=== PATIENT | male | born 1950 | race Caucasian/White ===

== ENCOUNTER 2024-11-11 16:06 | Inpatient (IN) ==
--- NOTE | 2024-11-11 16:47 | Emergency Department Note ---
Impression & Plan Symptomatic anemia, Elevated troponin I level, Weakness ED Provider Note NAME: CECY FITZGERALD AGE: 74 SEX: M : 1950 ARRIVES VIA: Walk-In INFORMANT: Patient, ED PROVIDER(S): Chirag Rosales DO CHIEF COMPLAINT: Weakness HPI: The patient is a 74-year-old male who presented to the emergency department for an evaluation of generalized weakness and chest pain. The patient has a history of cardiac disease. He had stenting 1 month ago. He also has a history of a progressively worsening hemoglobin. He has a history of lung cancer which was treated with wedge resection. He is currently not receiving chemotherapy or radiation. The patient had laboratory studies done last week by his mortar maker. He was called today and sent to the emergency department for blood transfusion. The patient has been very symptomatic with weakness. He had some shortness of breath with exertion. He denies having any leg swelling. He has had some black stool. He states currently this seems to be improving. ROS: See above HPI for pertinent positives & negatives. A total of 10 systems reviewed and were otherwise negative. PAST MEDICAL HISTORY: See Below PAST SURGICAL HISTORY: See Below FAMILY HISTORY: See Below SOCIAL HISTORY: See Below HOME MEDICATIONS: See Below ALLERGIES: See Below VITALS: See Below PHYSICAL EXAMINATION: GENERAL: Patient is awake alert in no acute distress patient is resting comfortably and showing no signs of anxiety EYES: The conjunctivae are clear. The pupils are round and reactive. EARS, NOSE, MOUTH AND THROAT: The nose is without any evidence of any deformity. NECK: The neck is nontender and supple. RESPIRATORY: Normal respiratory effort is noted there is no evidence of wheezing rhonchi or rales CARDIOVASCULAR: Regular rate and rhythm noted there no murmurs rubs or gallops normal S1 normal S2. GASTROINTESTINAL: The abdomen is soft. Abdomen is nontender. MUSCULOSKELETAL/EXTREMITIES: There is no evidence of gross deformity full range of motion is noted in the hips and shoulders. SKIN: There is no obvious evidence of any rash. Trace pedal edema was noted bilaterally. Skin was warm and dry. NEUROLOGIC: Patient is awake alert and oriented x3 MEDICAL DECISION MAKING: The patient is a 74-year-old male who presented to the emergency department for an evaluation of generalized weakness. The patient has a history of coronary artery disease. He has been having generalized weakness. He had laboratory studies done last week by his primary mortar maker. He was called today and told to come to the emergency department for further evaluation. The patient was found to be anemic. He has a history of GI bleeding. This was worked up as an outpatient as well as an inpatient in the past. No obvious source could be found despite upper as well as lower GI scoping. The patient states he has been having some dark stool but this is improving over the course the last several days. The patient was found to have anemia. Given his symptoms the patient was ordered transfusion in the emergency department. His case was discussed with the [facility] Hospitalist. Triage Nursing notes reviewed. Prior medical records reviewed Vital Signs: reviewed and remarkable for no significant abnormalities Differential diagnosis: Infection, dehydration, metabolic abnormality, hypo/hyperglycemia, electrolyte disturbance, anemia, hypoxia, cardiac sources, intracerebral event, toxicologic, neurologic, as well as other pathologies. ER treatment provided: See below Diagnostics interpreted by me: ECG: EKG was obtained in the emergency department. My interpretation is sinus bradycardia 52 bpm. No PVCs were noted. ST segment abnormalities were appreciated with a QTc of 602 ms. No previous tracings available. Cardiac Monitoring: An order was placed for continuous cardiac monitoring. The monitor shows a rate of 50 bpm with sinus bradycardia. Laboratory studies: As stated above and show below. Imaging studies: See below. Radiographic imaging was reviewed by myself Consultation(s): Dr. Lou was notified about the patient. She is on-call for the [facility] hospitalist group. Past Med/Surg History Problem List (Updated 11/11/24 @ 18:54 by Cinthia Lou MD) Chronic anticoagulation Afib COPD (chronic obstructive pulmonary disease) Iron deficiency anemia Acute diastolic heart failure Weakness (Acute) Elevated troponin I level (Acute) Symptomatic anemia (Acute) Medical History GI bleed CAD in [place] artery CHF (congestive heart failure) Hypertension Lung cancer Surgical History History of coronary artery stent placement Social History Smoking Status: Never smoker Feels Safe at Home: Yes Allergies Allergies Allergy/AdvReac Type Severity Reaction Status Date / Time Iodinated Contrast Media Allergy Intermediate Irritable Unverified 11/11/24 19:17 Home Meds Home Medications Medication Instructions Recorded Confirmed albuterol sulfate 2.5 mg/3 mL 2.5 mg inhalation Q6H PRN Wheezing 11/11/24 11/11/24 (0.083 %) solution for nebulization amiodarone 200 mg tablet 200 mg PO DAILY 11/11/24 11/11/24 atorvastatin 40 mg tablet 40 mg PO HS 11/11/24 11/11/24 budesonide 160 mcg-glycopyr 9 1 inh inhalation BID 11/11/24 11/11/24 mcg-formot 4.8 mcg/actuation HFA inhaler (Breztri GetMyBoatphere) bumetanide 1 mg tablet 1 mg PO BID 11/11/24 11/11/24 carvedilol 25 mg tablet 25 mg PO BID 11/11/24 11/11/24 clopidogrel 75 mg tablet 75 mg PO DAILY 11/11/24 11/11/24 diltiazem HCl 360 mg capsule,24 360 mg PO DAILY 11/11/24 11/11/24 hr,extended release empagliflozin 10 mg tablet 10 mg PO DAILY 11/11/24 11/11/24 (Jardiance) ferrous sulfate 325 mg (65 mg 325 mg PO DAILY 11/11/24 11/11/24 iron) tablet hydralazine 100 mg tablet 100 mg PO TID 11/11/24 11/11/24 loratadine 10 mg tablet 10 mg PO DAILY 11/11/24 11/11/24 multivitamin 1 tab PO DAILY 11/11/24 11/11/24 pantoprazole 40 mg tablet,delayed 40 mg PO DAILY 11/11/24 11/11/24 release rivaroxaban 20 mg tablet (Xarelto) 20 mg PO DAILY 11/11/24 11/11/24 tirzepatide 2.5 mg/0.5 mL 2.5 mg subcut WK 11/11/24 11/11/24 subcutaneous pen injector (Stephanie) Results & Data (ED) Vital Signs Vital Signs - 24 hr 11/11/24 16:10 11/11/24 16:32 11/11/24 16:59 Temperature 36.7 C Temperature Source Temporal Artery Scan Pulse Rate 56 L 54 L Pulse Rate [Apical] 52 L Respiratory Rate 18 18 Respiratory Effort / Characteristics Non-Labored Non-Labored Spontaneous Respiratory Depth Normal Respiratory Pattern Regular Blood Pressure 134/53 L Blood Pressure [Right Arm] 153/68 H Blood Pressure Mean 80 Blood Pressure Mean [Right Arm] 96 Pulse Oximetry 98 94 Oxygen Delivery Method Room Air Room Air Oxygen Flow Rate Sepsis Recent Fever Within 48 Hours No Sepsis New/Unexplained Change in Mental Status N/A Sepsis Action Taken by Nursing No Action Required 11/11/24 16:59 11/11/24 18:07 11/11/24 18:58 Temperature 37.1 C Temperature Source Oral Pulse Rate 50 L 58 L Pulse Rate [Apical] 55 L Respiratory Rate 18 16 19 Respiratory Effort / Characteristics Respiratory Depth Respiratory Pattern Blood Pressure 165/77 H Blood Pressure [Right Arm] 213/82 H Blood Pressure Mean 106 Blood Pressure Mean [Right Arm] 125 Pulse Oximetry 94 95 96 Oxygen Delivery Method Room Air Room Air Oxygen Flow Rate 0 Sepsis Recent Fever Within 48 Hours Sepsis New/Unexplained Change in Mental Status Sepsis Action Taken by Nursing 11/11/24 19:15 11/11/24 19:30 11/11/24 19:30 Temperature 37 C 36.9 C 36.9 C Temperature Source Oral Oral Oral Pulse Rate 59 L 59 L 59 L Pulse Rate [Apical] Respiratory Rate 19 20 20 Respiratory Effort / Characteristics Respiratory Depth Respiratory Pattern Blood Pressure 167/91 H 167/68 H 167/68 H Blood Pressure [Right Arm] Blood Pressure Mean 116 101 101 Blood Pressure Mean [Right Arm] Pulse Oximetry 95 95 95 Oxygen Delivery Method Oxygen Flow Rate 0 0 0 Sepsis Recent Fever Within 48 Hours Sepsis New/Unexplained Change in Mental Status Sepsis Action Taken by Half-Way Medications Current Medication List: was personally reviewed by me Laboratory Data Attestation: I reviewed the patient's lab results. 11/11/24 16:30 11/11/24 16:30 Lab Results 11/11/24 11/11/24 11/11/24 Range/Units 16:30 16:39 17:47 WBC 6.85 (4.8-10.8) K/ul RBC 2.44 L (4.70-6.10) M/uL Hgb 6.7 L* (14.0-18.0) g/dl Hct 23.1 L (42.0-52.0) % MCV 94.7 (80.0-100.0) fL MCH 27.5 (25.0-34.0) pg MCHC 29.0 L (32.0-36.0) g/dL RDW Std Deviation 54.1 H (36.4-46.3) fL RDW Coeff of Jesus 15.7 H (11.5-14.5) % Plt Count 290 (130-400) K/uL MPV 10.4 (9.4-12.4) fL Immature Gran % (Auto) 0.4 % Neut % (Auto) 76.6 % Lymph % (Auto) 11.7 % [place] % (Auto) 8.8 % Eos % (Auto) 1.9 % Baso % (Auto) 0.6 % Reticulocyte % (Auto) 7.09 H (0.50-2.00) % Neut # (Auto) 5.25 (1.40-6.50) K/uL Lymph # (Auto) 0.80 L (1.20-3.40) K/uL [place] # (Auto) 0.60 H (0.11-0.59) K/uL Eos # (Auto) 0.13 (0.00-0.50) K/uL Baso # (Auto) 0.04 (0.00-0.20) K/uL Reticulocyte # 0.180 H (0.020-0.100) 10^6/uL Immature Gran # (Auto) 0.03 (0.01-0.20) K/uL Polychromasia 1+ Hypochromasia Present Ovalocytes 1+ PT 19.8 H (9.0-12.0) Seconds INR 1.9 H (0.9-1.1) APTT 38 H (21-31) Seconds PTT Ratio 1.4 Sodium 140 (136-145) mmol/L Potassium 3.5 (3.5-5.1) mmol/L Chloride 101 (98-107) mmol/L Carbon Dioxide 28 (21-32) mmol/L Anion Gap 11 (3-11) BUN 18 (6-23) mg/dl Creatinine 1.40 (0.6-1.4) mg/dl Est Cr Clr Drug Dosing 63.8 ml/min eGFR 53.07 BUN/Creatinine Ratio 12.9 (10-20) Glucose 139 H (70-99(Fasting)) mg/dl Calcium 9.3 (8.6-10.3) mg/dl Iron 17 L (35-175) mcg/dl TIBC 494 H (250-450) mcg/dl Transferrin 353 (200-360) mg/dl Transferrin % Sat 3 L (20-50) % Total Bilirubin 0.6 (0.2-1.0) mg/dl AST 14 (13-39) U/L ALT 12 (7-52) U/L Alkaline Phosphatase 79 (34-104) U/L Troponin I High Sens 22.5 H (0-20) pg/ml B-Natriuretic Peptide 386 H (0-100) pg/ml Total Protein 6.3 (6.0-8.3) gm/dl Albumin 3.6 (3.4-5.0) gm/dl Globulin 2.7 (2.5-4.0) gm/dl Albumin/Globulin Ratio 1.3 (0.9-2) Lipase 16 (11-82) U/L Blood Type O Negative Blood Type Recheck O Negative Antibody Screen NEGATIVE Crossmatch See Detail 11/11/24 Range/Units 18:36 WBC (4.8-10.8) K/ul RBC (4.70-6.10) M/uL Hgb (14.0-18.0) g/dl Hct (42.0-52.0) % MCV (80.0-100.0) fL MCH (25.0-34.0) pg MCHC (32.0-36.0) g/dL RDW Std Deviation (36.4-46.3) fL RDW Coeff of Jesus (11.5-14.5) % Plt Count (130-400) K/uL MPV (9.4-12.4) fL Immature Gran % (Auto) % Neut % (Auto) % Lymph % (Auto) % [place] % (Auto) % Eos % (Auto) % Baso % (Auto) % Reticulocyte % (Auto) (0.50-2.00) % Neut # (Auto) (1.40-6.50) K/uL Lymph # (Auto) (1.20-3.40) K/uL [place] # (Auto) (0.11-0.59) K/uL Eos # (Auto) (0.00-0.50) K/uL Baso # (Auto) (0.00-0.20) K/uL Reticulocyte # (0.020-0.100) 10^6/uL Immature Gran # (Auto) (0.01-0.20) K/uL Polychromasia Hypochromasia Ovalocytes PT (9.0-12.0) Seconds INR (0.9-1.1) APTT (21-31) Seconds PTT Ratio Sodium (136-145) mmol/L Potassium (3.5-5.1) mmol/L Chloride (98-107) mmol/L Carbon Dioxide (21-32) mmol/L Anion Gap (3-11) BUN (6-23) mg/dl Creatinine (0.6-1.4) mg/dl Est Cr Clr Drug Dosing ml/min eGFR BUN/Creatinine Ratio (10-20) Glucose (70-99(Fasting)) mg/dl Calcium (8.6-10.3) mg/dl Iron (35-175) mcg/dl TIBC (250-450) mcg/dl Transferrin (200-360) mg/dl Transferrin % Sat (20-50) % Total Bilirubin (0.2-1.0) mg/dl AST (13-39) U/L ALT (7-52) U/L Alkaline Phosphatase (34-104) U/L Troponin I High Sens 22.0 H (0-20) pg/ml B-Natriuretic Peptide (0-100) pg/ml Total Protein (6.0-8.3) gm/dl Albumin (3.4-5.0) gm/dl Globulin (2.5-4.0) gm/dl Albumin/Globulin Ratio (0.9-2) Lipase (11-82) U/L Blood Type Blood Type Recheck Antibody Screen Crossmatch Administered Medications Discontinued Medications Furosemide (Furosemide 40 Mg/4 Ml Vial) 40 mg IV ONE ONE Stop: 11/11/24 17:38 Last Admin: 11/11/24 17:48 Dose: 40 mg Documented By: CAPRI Imaging Data Attestation: I personally reviewed and interpreted this imaging study as follows: My Impression: 1 view chest x-ray was obtained in the emergency department. My interpretation is possible infiltrate noted the right base, cardiomegaly was noted, final report below. Radiologist's Impression: Chest X-Ray 11/11/24 16:16 Clinical History: Chest pain and short of breath Technique: 2 frontal views of the chest were obtained Findings: There are no confluent pulmonary infiltrates. The heart is mildly enlarged. No pleural effusion or pneumothorax is seen. There is suspected mild pulmonary edema. No fracture is noted. No foreign body is seen Impression: Cardiomegaly and mild pulmonary edema ACT 112: Positive. There are findings on this exam that require communication between the performing entity and the patient following Patient Test Result Information Act ([place] ACT 112) guidelines. Electronically signed by Flaco Rubalcava 11-11-2024 4:54 PM Discharge Plan Visit Data Chief Complaint: Abnormal Labs/Diagnostic Testing Stated Complaint: BLOOD TRANSFUSION, LOW HEMOGLOBIN ED Provider: Chirag Rosales ED Midlevel Provider: Consuelo Escobedo Discharge Problem: Symptomatic anemia, Elevated troponin I level, Weakness Patient Disposition: Being Evaluated by Hospitalist Condition: Fair Forms Stand Alone Forms: My [facility] Prescriptions Prescriptions: No Action multivitamin Tablet 1 tab PO DAILY atorvastatin 40 mg Tablet 40 mg PO HS carvedilol 25 mg Tablet 25 mg PO BID Rx Instructions: must administer with a meal/food albuterol sulfate 2.5 mg /3 mL (0.083 %) Solution For Nebulization 2.5 mg inhalation Q6H PRN (Reason: Wheezing) amiodarone 200 mg Tablet 200 mg PO DAILY diltiazem HCl 360 mg Capsule,Extended Release 24hr 360 mg PO DAILY clopidogrel 75 mg Tablet 75 mg PO DAILY hydralazine 100 mg Tablet 100 mg PO TID pantoprazole 40 mg Tablet,Delayed Release (Dr/Ec) 40 mg PO DAILY ferrous sulfate 325 mg (65 mg iron) Tablet 325 mg PO DAILY bumetanide 1 mg Tablet 1 mg PO BID Rx Instructions: Take an additional 1 mg when there is a weight gain of 1-2 pounds the next day. loratadine 10 mg Tablet 10 mg PO DAILY Xarelto 20 mg Tablet 20 mg PO DAILY Rx Instructions: must administer with evening meal Jardiance 10 mg Tablet 10 mg PO DAILY Breztri Aerosphere 160-9-4.8 mcg/actuation Hfa Aerosol Inhaler 1 inh INHALATION BID Mounjaro 2.5 mg/0.5 mL Pen Injector 2.5 mg SUBCUT WK Referrals Referrals: Kyle Santizo, [Primary Care Provider] -
[2024-11-11 16:49] LABS: Hematocrit (blood only) 23.1 % (42.0-52.0); Hemoglobin 6.7 g/dl (14.0-18.0); Mean Corpuscular Hemoglobin 27.5 pg (25.0-34.0); Mean Corpuscular Volume 94.7 fL (80.0-100.0); Platelet Count 290 K/uL (130-400); RDW Standard Deviation 54.1 fL (36.4-46.3); Red Blood Count 2.44 M/uL (4.70-6.10); White Blood Count 6.85 K/ul (4.8-10.8)
--- NOTE | 2024-11-11 16:54 | XRay Report ---
Clinical History: Chest pain and short of breath Technique: 2 frontal views of the chest were obtained Findings: There are no confluent pulmonary infiltrates. The heart is mildly enlarged. No pleural effusion or pneumothorax is seen. There is suspected mild pulmonary edema. No fracture is noted. No foreign body is seen Impression: Cardiomegaly and mild pulmonary edema ACT 112: Positive. There are findings on this exam that require communication between the performing entity and the patient following Patient Test Result Information Act ([place] ACT 112) guidelines. Electronically signed by Flaco Rubalcava 11-11-2024 4:54 PM
[2024-11-11] MEDS ORDERED: SODIUM CHLORIDE 0.9% 100 ML IV PRN (16:59)
[2024-11-11 17:04] LABS: Alanine Aminotransferase 12.0 U/L (7-52); Albumin Globulin Ratio 1.3 (0.9-2); Alkaline Phosphatase 79.0 U/L (34-104); Anion Gap 11.0 (3-11); Bilirubin,Total 0.6 mg/dl (0.2-1.0); Blood Urea Nitrogen 18.0 mg/dl (6-23); Calcium 9.3 mg/dl (8.6-10.3); Carbon Dioxide 28.0 mmol/L (21-32); Chloride 101.0 mmol/L (98-107); Creatinine Clr Calc Pharmacy 63.8 ml/min; Globulin 2.7 gm/dl (2.5-4.0); Glucose 139.0 mg/dl (70-99(Fasting)); Lipase 16.0 U/L (11-82); Potassium 3.5 mmol/L (3.5-5.1); Sodium 140.0 mmol/L (136-145); Total Protein 6.3 gm/dl (6.0-8.3)
[2024-11-11 17:19] LABS: Iron 17.0 mcg/dl (35-175); Total Iron Binding Cap Calc 494.0 mcg/dl (250-450); Transferrin 353.0 mg/dl (200-360); Transferrin (FE) Percent Satur 3.0 % (20-50)
[2024-11-11 17:20] LABS: INR 1.9 (0.9-1.1); Partial Thromboplastin Time 38 Seconds (21-31); Prothrombin Time 19.8 Seconds (9.0-12.0)
[2024-11-11 17:29] LABS: Hypochromasia Present; Immature Granulocytes # (auto) 0.03 K/uL (0.01-0.20); Immature Granulocytes % (auto) 0.4 %; Ovalocytes 1+; Polychromasia 1+
[2024-11-11 17:38] LABS: Reticulocytes # 0.180 10^6/uL (0.020-0.100)
[2024-11-11] MEDS: FUROSEMIDE 40 MG/4 ML VIAL IV ONE (17:48)
--- NOTE | 2024-11-11 18:41 | History & Physical Report ---
Date of Service November 11, 2024 Assessment & Plan (1) Symptomatic anemia: (2) Elevated troponin I level: (3) Acute diastolic heart failure: (4) Iron deficiency anemia: (5) GI bleed: (6) CAD in [place] artery: (7) Hypertension: (8) Lung cancer: (9) COPD (chronic obstructive pulmonary disease): (10) Afib: (11) Chronic anticoagulation: Plan #Chronic blood loss / Symptomatic anemia #GIB #Iron deficiency anemia - pt will get 1 unit PRBC in the ED - will request GI eval - request records about previous EGD / C-scope - iron sat: 3%, iron 16, TIBC 494 - given pt has recent cardiac stent, will cont plavix - will place on clear liquid diet #AFib - cont amiodarone, diltiazem (confirm if pt is also on carvedilol) - pt has intermittent tachycardia and bradycardia - pt is on Xarelto, will tonight's dose until pt is evaluated by cardiology and GI #CHF - BNP pending - pt takes bumex 1mg po BID - s/p lasix 40mg IV x1 in the ED, cont 40mg IV daily - cont empagliflozin #HTN - pt on cont diltiazem (hold if HR < 55), hydralazine #Carotid artery stenosis - left carotid completely occluded - pt follows with Dr. Cárdenas #Constipation - iron induced - will order bowel regimen #HLD - cont atorvastatin #GERD - cont PPI #COPD - cont home nebulizers #ARON - trial CPAP while inpatient #Bradycardia - chronic, monitor at this time #DVT ppx: cont SCDs, holding xarelto for now #Code status: Full code, pt does state that if he does not return to baseline after his code and has severe neurological impairment, he does not want his life prolonged #Disposition: admit to PCU / Tele for closer monitoring History of Present Illness Chief Complaint: Low hemoglobin Primary Care Provider: Kyle Santizo, DO 74 yo M with PMHx of CAD s/p PCI x3 (2 LAD and 1 Circ - 09/2024), HTN, HLD, ARON not on CPAP, COPD, GIB (with reportedly neg EGD / C-scope), lung cancer s/p wedge bx (2023), AFib on Xarelto. Pt was sent to the hospital for low Hgb count. Per pt and his daughter, his hemoglobin has been trending down over the past 9 months. He had EGD and colonoscopy done in the last 12 months and he was told it is negative. He has not had capsule endoscopy or any other testing done. His stool however has been positive for blood. His stool is chronic black and also sticky. He does take iron. He has also had exertional dyspnea. He is not able to climb stairs, get out of car, or do ADLs for prolonged period of time without feeling dyspneic. He has also noted increase in weight by 2 pounds. His lower extremity edema has been worsening as well. He denied chest pain, palpitations, dizziness. He notes constipation x24 hours. Though he has known GI loss, he continues on plavix (for stents) and xarelto (for AFib). Also discussed CPAP and effects of pulmonary hypertension. Pt expresses severe discomfort with having it on. In the ED, given his Hgb is 6.7, he is given 1 unit PRBC. CXR shows pulmonary edema and he is given lasix 40mg IV. Past Med/Surg History Problem List (Updated 11/11/24 @ 18:54 by Cinthia Lou MD) Chronic anticoagulation Afib COPD (chronic obstructive pulmonary disease) Iron deficiency anemia Acute diastolic heart failure Weakness (Acute) Elevated troponin I level (Acute) Symptomatic anemia (Acute) Medical History GI bleed CAD in [place] artery CHF (congestive heart failure) Hypertension Lung cancer Surgical History History of coronary artery stent placement Social History Smoking Status: Never smoker Feels Safe at Home: Yes Review of Systems Review of Systems: Comprehensive ROS completed and is otherwise negative. Physical Exam Physical Exam: Gen: no acute distress, obese male, lying in bed comfortable HEENT: NC/AT, MMM Lungs: nonlabored breathing, CTAB (though some wheezing noted during conversation, suspect more upper airway) CVS: s1s2nl, RRR Abd: nl bowel sounds, soft, NT / ND : no martinez Ext: 2+ edema b/l, up to knees Neuro: AAOx3 Psych: calm, cooperative Results & Data Results & Data Vital Signs (Past 12 Hours) Vital Signs Temp Pulse Pulse Resp BP BP Pulse Ox 11/11/24 18:07 55 L 16 213/82 H 95 11/11/24 16:59 50 L 18 94 11/11/24 16:59 52 L 18 153/68 H 94 11/11/24 16:32 54 L 11/11/24 16:10 36.7 C 56 L 18 134/53 L 98 O2 Del Method 11/11/24 18:07 Room Air 11/11/24 16:59 Room Air 11/11/24 16:59 Room Air 11/11/24 16:32 11/11/24 16:10 Room Air PG Care Time/CCT Total # of Minutes Spent Total Time Spent with Patient: Total time spent is greater than 50% in coordination of care (as documented) at patient's floor/unit and/or counseling patient: Coding Level of Care Code 22091 INT INP/OBS CARE 3/75MIN Diagnoses Symptomatic anemia D64.9 Elevated troponin I level R79.89 Acute diastolic heart failure I50.31 Iron deficiency anemia D50.9 GI bleed K92.2 CAD in [place] artery I25.10 Hypertension I10 Lung cancer C34.90 COPD (chronic obstructive pulmonary disease) J44.9 Afib I48.91 Chronic anticoagulation Z79.01
[2024-11-11] MEDS ORDERED: NITROGLYCERIN SL 0.4 MG/TAB TAB SL PRN (21:02)
[2024-11-11] MEDS ORDERED: ONDANSETRON INJ 2 MG/ML 2 ML VIAL IV PRN (21:02)
[2024-11-11] MEDS ORDERED: NON-FORMULARY MEDICATION (Budesonide-Glycopyr-Formoterol [Breztri Aerosphere] 160-9-4.8 mc INH SCH (21:02)
[2024-11-11] MEDS: BUMETANIDE 1 MG TAB PO SCH (22:27)
[2024-11-11] MEDS: ACETAMINOPHEN 325 MG TAB PO PRN (22:30)
[2024-11-11] MEDS: ATORVASTATIN 40 MG TAB PO SCH (22:31)
[2024-11-12] MEDS: MELATONIN 3 MG TAB PO PRN (01:51)
[2024-11-12] MEDS: POLYETHYLENE (MIRALAX) 17 GM PACK PO PRN (07:42)
[2024-11-12] MEDS: BUMETANIDE 1 MG TAB PO SCH (07:42)
[2024-11-12] MEDS: AMIODARONE 200 MG TAB PO SCH (07:43)
[2024-11-12] MEDS: LORATADINE 10 MG TAB PO SCH (07:43)
[2024-11-12] MEDS: FERROUS SULFATE 325 MG TAB PO SCH (07:44)
[2024-11-12] MEDS: EMPAGLIFLOZIN 10 MG TAB PO SCH (07:44)
[2024-11-12] MEDS: FLUTICASONE FUROATE 100MCG 14 PUFFS/INHALER INH SCH (07:44)
[2024-11-12] MEDS: CLOPIDOGREL BISULFATE 75 MG TAB PO SCH (07:44)
[2024-11-12] MEDS: UMECLIDINIUM/VILANTEROL 62.5/25MCG 7 PUFFS/INHALER INH SCH (07:45)
--- NOTE | 2024-11-12 08:44 | Cardiology Consultation ---
Date of Consultation November 12, 2024 Assessment & Plan (1) CAD (coronary artery disease): Status post cath x 3 stents in September 2024 with PCI to LAD 80% proximal to mid as well as a 70% mid circumflex (2) Paroxysmal atrial fibrillation: (3) Acute diastolic heart failure: (4) Symptomatic anemia: (5) Elevated troponin I level: (6) Rectal bleeding: (7) Carotid artery disease: (8) Pulmonary hypertension: His wedge pressure and LVEDP at the time of his catheterization was quite elevated 30-35. His pulmonary artery pressures were 65/28 which is severe Plan Fortunately with this recurrent GI bleeding both his antiplatelet clopidogrel as well as his Xarelto will need held. He was received a second unit of blood. I would recommend that GI proceed with his evaluation while he is here in the hospital and we can safely hold his blood thinners. He should be maintained on amiodarone at this time to hopefully keep him in normal sinus rhythm because of the recurrent GI bleeding in less than a year he definitely qualifies for evaluation for a Watchman procedure. The status of the lung cancer is not completely clear at this point however and needs to be factored into decision for all of the above. Cardiology will follow the patient in the hospital and then we will schedule him for follow-up afterwards. Thank you for allow me to participate in his care. History of Present Illness Reason for Consultation: Cardiac evaluation Attending Physician: Cinthia Lou MD History of Present Illness Mr. Abdulaziz Rascon is a 74-year-old man who is recently becoming established with [facility] cardiology. He saw my partner on [phone] and was referred from vascular surgery due to significant carotid disease. He has had history of coronary artery disease and catheterization in the past with LAD stenting as well as circumflex stenting. He has had congestive heart failure as well in the past. He presented to the emergency room yesterday after our office called with severe anemia and a hemoglobin down to 6. He reports that he has been having GI bleeding for several months. In fact he underwent a GI evaluation in [place] where he moved from in August of this year and also about 9 months ago. In August he underwent an EGD and was started on famotidine but has been on pantoprazole for quite some time. He reports that when he had the colonoscopy about 9 months ago he was noted to have diverticuli. He has a history of obstructive sleep apnea but is intolerant of CPAP. In addition he has the recent GI bleeding and melena which we have not been able to explain despite prior workup. He has a history of severe tobacco abuse and was smoking up to 4 packs/day and stopped in 2023 at the time of the diagnosis of lung resection cancer status post resection of the right upper and middle lobes. He also has a history of prostate cancer in the past. He has a history of A- fib flutter and is on amiodarone as well as anticoagulation. He sees vascular surgery Dr. Cárdenas and has a left carotid occlusion with a 50 to 60% of the right carotid stenosis. When he came into the hospital yesterday he underwent a single unit transfusion last night. His hemoglobin was still in the low sevens and he was getting a second unit at this time. He has been seen by GI and the plan is to do endoscopy on him again. Allergies Allergy/AdvReac Type Severity Reaction Status Date / Time Iodinated Contrast Media Allergy Intermediate Irritable Unverified 11/11/24 19:17 Home Medications Medication Instructions Recorded Confirmed Type albuterol sulfate 2.5 mg/3 mL 2.5 mg inhalation Q6H PRN Wheezing 11/11/24 11/11/24 History (0.083 %) solution for nebulization amiodarone 200 mg tablet 200 mg PO DAILY 11/11/24 11/11/24 History atorvastatin 40 mg tablet 40 mg PO HS 11/11/24 11/11/24 History budesonide 160 mcg-glycopyr 9 1 inh inhalation BID 11/11/24 11/11/24 History mcg-formot 4.8 mcg/actuation HFA inhaler (Breztri Aerosphere) bumetanide 1 mg tablet 1 mg PO BID 11/11/24 11/11/24 History carvedilol 25 mg tablet 25 mg PO BID 11/11/24 11/11/24 History clopidogrel 75 mg tablet 75 mg PO DAILY 11/11/24 11/11/24 History diltiazem HCl 360 mg capsule,24 360 mg PO DAILY 11/11/24 11/11/24 History hr,extended release empagliflozin 10 mg tablet 10 mg PO DAILY 11/11/24 11/11/24 History (Jardiance) ferrous sulfate 325 mg (65 mg 325 mg PO DAILY 11/11/24 11/11/24 History iron) tablet hydralazine 100 mg tablet 100 mg PO TID 11/11/24 11/11/24 History loratadine 10 mg tablet 10 mg PO DAILY 11/11/24 11/11/24 History multivitamin 1 tab PO DAILY 11/11/24 11/11/24 History pantoprazole 40 mg tablet,delayed 40 mg PO DAILY 11/11/24 11/11/24 History release rivaroxaban 20 mg tablet (Xarelto) 20 mg PO DAILY 11/11/24 11/11/24 History tirzepatide 2.5 mg/0.5 mL 2.5 mg subcut WK 11/11/24 11/11/24 History subcutaneous pen injector (Mounjaro) Patient History Medical History GI bleed CAD in [place] artery CHF (congestive heart failure) Hypertension Lung cancer Surgical History History of coronary artery stent placement Social History Smoking Status: Former smoker Tobacco Type: Cigarettes Hx Alcohol Use: Yes Alcohol type: beer Hx Substance Use: No Preferred Language: Bulgarian Communication Ability: Effective 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 Beliefs That Will Affect Care: None Current Living Situation: Family Feels Safe at Home: Yes Safety Concerns: Feels Safe At This Time Assistive Devices: Cane Review of Systems Review of Systems: All systems reviewed & are unremarkable except as noted in HPI & below Physical Exam Physical Exam: AAO x3 Respiratory: normal respiratory effort, lungs clear to auscultation Cardiovascular: RRR, no murmur, no edema Results & Data Vital Signs (Past 12 Hours) Vital Signs Temp Pulse Pulse Resp BP BP Pulse Ox 11/12/24 08:36 36.8 C 51 L 18 154/63 H 96 11/12/24 08:17 11/12/24 02:27 36.7 C 49 L 16 147/55 H 96 11/11/24 23:00 59 L 11/11/24 22:40 36.9 C 60 20 167/60 H 96 11/11/24 21:08 11/11/24 21:08 36.7 C 62 22 185/67 H 95 11/11/24 21:00 36.7 C 62 185/67 H O2 Del Method 11/12/24 08:36 Room Air 11/12/24 08:17 Room Air 11/12/24 02:27 Room Air 11/11/24 23:00 11/11/24 22:40 Room Air 11/11/24 21:08 Room Air 11/11/24 21:08 Room Air 11/11/24 21:00 Laboratory Results Abnormal lab results 11/11/24 11/11/24 11/11/24 Range/Units 16:30 16:39 17:47 RBC 2.44 L (4.70-6.10) M/uL Hgb 6.7 L* (14.0-18.0) g/dl Hct 23.1 L (42.0-52.0) % MCHC 29.0 L (32.0-36.0) g/dL RDW Std Deviation 54.1 H (36.4-46.3) fL RDW Coeff of Jesus 15.7 H (11.5-14.5) % Reticulocyte % (Auto) 7.09 H (0.50-2.00) % Lymph # (Auto) 0.80 L (1.20-3.40) K/uL Bent # (Auto) 0.60 H (0.11-0.59) K/uL Reticulocyte # 0.180 H (0.020-0.100) 10^6/uL PT 19.8 H (9.0-12.0) Seconds INR 1.9 H (0.9-1.1) APTT 38 H (21-31) Seconds Glucose 139 H (70-99(Fasting)) mg/dl Iron 17 L (35-175) mcg/dl TIBC 494 H (250-450) mcg/dl Transferrin % Sat 3 L (20-50) % Troponin I High Sens 22.5 H (0-20) pg/ml B-Natriuretic Peptide 386 H (0-100) pg/ml Crossmatch See Detail 11/11/24 Range/Units 18:36 RBC (4.70-6.10) M/uL Hgb (14.0-18.0) g/dl Hct (42.0-52.0) % MCHC (32.0-36.0) g/dL RDW Std Deviation (36.4-46.3) fL RDW Coeff of Jesus (11.5-14.5) % Reticulocyte % (Auto) (0.50-2.00) % Lymph # (Auto) (1.20-3.40) K/uL Bent # (Auto) (0.11-0.59) K/uL Reticulocyte # (0.020-0.100) 10^6/uL PT (9.0-12.0) Seconds INR (0.9-1.1) APTT (21-31) Seconds Glucose (70-99(Fasting)) mg/dl Iron (35-175) mcg/dl TIBC (250-450) mcg/dl Transferrin % Sat (20-50) % Troponin I High Sens 22.0 H (0-20) pg/ml B-Natriuretic Peptide (0-100) pg/ml Crossmatch Medications Administered Current Inpatient Medications Acetaminophen (Acetaminophen 325 Mg Tab) 650 mg PO Q4H PRN PRN Reason: Pain or Fever Stop: 12/11/24 22:19 Last Admin: 11/12/24 07:42 Dose: 650 mg Albuterol (Albuterol 0.083% Nebu Soln 3 Ml Vial) 2.5 mg INH Q6H PRN; Protocol PRN Reason: Wheezing Stop: 12/11/24 21:01 Amiodarone HCl (Amiodarone 200 Mg Tab) 200 mg PO DAILY PEG Stop: 12/12/24 08:59 Last Admin: 11/12/24 07:43 Dose: 200 mg Atorvastatin Calcium (Atorvastatin 40 Mg Tab) 40 mg PO HS PEG Stop: 12/11/24 21:01 Last Admin: 11/11/24 22:31 Dose: 40 mg Bumetanide (Bumetanide 1 Mg Tab) 1 mg PO BID PEG Stop: 12/12/24 08:59 Last Admin: 11/12/24 07:42 Dose: 1 mg Carvedilol (Carvedilol 25 Mg Tab) 25 mg PO BID PEG Stop: 12/11/24 21:01 Last Admin: 11/12/24 07:43 Dose: 25 mg Clopidogrel Bisulfate (Clopidogrel Bisulfate 75 Mg Tab) 75 mg PO DAILY PEG Stop: 12/12/24 08:59 Last Admin: 11/12/24 07:44 Dose: 75 mg Diltiazem HCl (Diltiazem Hcl 180 Mg Capcr) 360 mg PO DAILY [facility] Stop: 12/12/24 08:59 Last Admin: 11/12/24 07:43 Dose: 360 mg Empagliflozin (Empagliflozin 10 Mg Tab) 10 mg PO DAILY PEG Stop: 12/12/24 08:59 Last Admin: 11/12/24 07:44 Dose: 10 mg Ferrous Sulfate (Ferrous Sulfate 325 Mg Tab) 325 mg PO DAILY PEG Stop: 12/12/24 08:59 Last Admin: 11/12/24 07:44 Dose: 325 mg Fluticasone Furoate (Fluticasone Furoate 100mcg 14 Puffs/Inhaler) 1 puffs INH DAILY [facility] Stop: 12/12/24 08:59 Last Admin: 11/12/24 07:44 Dose: 1 puffs Hydralazine HCl (Hydralazine Tab 50 Mg Tab) 100 mg PO TID [facility] Stop: 12/11/24 21:01 Last Admin: 11/12/24 07:43 Dose: 100 mg Loratadine (Loratadine 10 Mg Tab) 10 mg PO DAILY [facility] Stop: 12/12/24 08:59 Last Admin: 11/12/24 07:43 Dose: 10 mg Melatonin (Melatonin 3 Mg Tab) 3 mg PO HS PRN PRN Reason: Sleep Stop: 12/12/24 01:25 Last Admin: 11/12/24 01:51 Dose: 3 mg Nitroglycerin (Nitroglycerin Sl 0.4 Mg/Tab Tab) 0.4 mg SL Q5M PRN PRN Reason: Chest Pain Stop: 12/11/24 21:01 Ondansetron HCl (Ondansetron Inj 2 Mg/Ml 2 Ml Vial) 4 mg IV Q6H PRN PRN Reason: Nausea Stop: 12/11/24 21:01 Pantoprazole Sodium (Pantoprazole 40 Mg Tab) 40 mg PO DAILY [facility] Stop: 12/12/24 08:59 Last Admin: 11/12/24 07:43 Dose: 40 mg Polyethylene Glycol (Polyethylene (Miralax) 17 Gm Pack) 17 gm PO DAILY PRN PRN Reason: Constipation Stop: 12/11/24 21:01 Last Admin: 11/12/24 07:42 Dose: 17 gm Umeclidinium/Vilanterol (Umeclidinium/Vilanterol 62.5/25mcg 7 Puffs/Inhaler) 1 puffs INH DAILY PEG Stop: 12/12/24 08:59 Last Admin: 11/12/24 07:45 Dose: 1 puffs ECG Additional Comments: NSR/ bradycardia right bundle branch block
[2024-11-12 08:57] LABS: Hematocrit (blood only) 25.9 % (42.0-52.0); Hemoglobin 7.6 g/dl (14.0-18.0); Mean Corpuscular Hemoglobin 26.8 pg (25.0-34.0); Mean Corpuscular Volume 91.2 fL (80.0-100.0); Platelet Count 294 K/uL (130-400); RDW Standard Deviation 56.7 fL (36.4-46.3); Red Blood Count 2.84 M/uL (4.70-6.10); White Blood Count 5.98 K/ul (4.8-10.8)
[2024-11-12 09:22] LABS: Anion Gap 8.0 (3-11); Blood Urea Nitrogen 16.0 mg/dl (6-23); Calcium 9.1 mg/dl (8.6-10.3); Carbon Dioxide 29.0 mmol/L (21-32); Chloride 100.0 mmol/L (98-107); Creatinine Clr Calc Pharmacy 61.6 ml/min; Glucose 192.0 mg/dl (70-99(Fasting)); Magnesium 2.2 mg/dl (1.7-2.4); Potassium 3.1 mmol/L (3.5-5.1); Sodium 137.0 mmol/L (136-145)
--- NOTE | 2024-11-12 09:28 | Gastrointestinal Consultation ---
Date of Consultation November 12, 2024 Assessment & Plan (1) Chronic anticoagulation: 74 year old male with history of of CAD s/p PCI x3 (09/2024) on Plavix, HTN, HLD, ARON, COPD, anemia (EGD/Colonoscopy in [place] in 2023 negative per patient, lung cancer, AFib on Xarelto and others below admitted through the ED w/ anemia, dark and tarry stools which outdate initiation of iron supplementation Clear liquid diet today today. Appreciate cardiology consultation. Will discuss candidacy for EGD/Colonoscopy w/ attending given his anticoagulation status, recent cardiac stenting and ongoing Plavix. Continue supportive measure for now as he is hemodynamically stable. Trend H&H. Monitor and document GI output. Transfuse PRN per primary team. IV PPI twice daily for 48 hours then convert to PO PPI 40 mg twice daily. Review records from EGD/Colonoscopy from [place] once they are obtained. I spent a total of 60 minutes on the date of service in review of patient's record, and previously obtained information in person and appropriate medical visit, discussion and education of plan, with patient and/or caregiver, placing orders for tests/referral/procedures as medically necessary and documentation of pertinent clinical information in patient's medical records for their visit today. (2) Iron deficiency anemia: Supervising Physician Co-Signing Physician Notes I saw and examined this patient with our nurse practitioner and agree with her assessment and plan. Patient presents with persistent anemia more severe this presentation with possible GI blood loss. Prior endoscopy and colonoscopy were unrevealing. The studies were done over a year ago. In light of the fact that he is having possible melena we will repeat these endoscopic procedures once able to hold Xarelto. Awaiting cardiology input. If repeat endoscopy and colonoscopy unrevealing he would be a candidate for capsule endoscopy to exclude a small bowel source. History of Present Illness Reason for Consultation: anemia Requesting Physician: Cinthia Lou MD Attending Physician: Cinthia Lou MD History of Present Illness 74 year old male with history of of CAD s/p PCI x3 (09/2024) on Plavix, HTN, HLD, ARON, COPD, anemia (EGD/Colonoscopy in [place] in 2023 negative per patient, lung cancer, AFib on Xarelto and others below admitted through the ED w/ anemia. GI was asked to evaluate.Suggests about a year ago he underwent EGD/Colonoscopy for evaluation of anemia. No source of bleeding was identified. He was advised to start OTC PPI therapy for reflux and to have a repeat colonoscopy in three years given a personal history of colon polyps. Suggests since this evaluation he has been readmitted x 3 at [facility] for evaluation of anemia. He notes he has had dark, tarry stools for a few months now. He notes that these started BEFORE he began taking oral iron supplementation one month ago. He denies abd pain. No nausea/vomiting. He does report intermittent solid's dysphagia. He notes intermittent constipation. No BRBPR. No report of weight loss. No fever, chills, CP, SOB. On arrival to the ED he was anemia w/ hgb 6.7 s/p 1 unit RBCs w/ HGB 7.6 this AM. CXR shows pulmonary edema and he was started on IV lasix. Cardiology consultation is pending. He has continued on Plavix and Xarleto. Brothers w/ large colon polyps. Personal history of colon polyps. No family history of GI malignancy. He is in the process of moving to [facility] w/ his daughter. Allergies Allergy/AdvReac Type Severity Reaction Status Date / Time Iodinated Contrast Media Allergy Intermediate Irritable Unverified 11/11/24 19:17 Home Medications Medication Instructions Recorded Confirmed Type albuterol sulfate 2.5 mg/3 mL 2.5 mg inhalation Q6H PRN Wheezing 11/11/24 11/11/24 History (0.083 %) solution for nebulization amiodarone 200 mg tablet 200 mg PO DAILY 11/11/24 11/11/24 History atorvastatin 40 mg tablet 40 mg PO HS 11/11/24 11/11/24 History budesonide 160 mcg-glycopyr 9 1 inh inhalation BID 11/11/24 11/11/24 History mcg-formot 4.8 mcg/actuation HFA inhaler (Breztri Aerosphere) bumetanide 1 mg tablet 1 mg PO BID 11/11/24 11/11/24 History carvedilol 25 mg tablet 25 mg PO BID 11/11/24 11/11/24 History clopidogrel 75 mg tablet 75 mg PO DAILY 11/11/24 11/11/24 History diltiazem HCl 360 mg capsule,24 360 mg PO DAILY 11/11/24 11/11/24 History hr,extended release empagliflozin 10 mg tablet 10 mg PO DAILY 11/11/24 11/11/24 History (Jardiance) ferrous sulfate 325 mg (65 mg 325 mg PO DAILY 11/11/24 11/11/24 History iron) tablet hydralazine 100 mg tablet 100 mg PO TID 11/11/24 11/11/24 History loratadine 10 mg tablet 10 mg PO DAILY 11/11/24 11/11/24 History multivitamin 1 tab PO DAILY 11/11/24 11/11/24 History pantoprazole 40 mg tablet,delayed 40 mg PO DAILY 11/11/24 11/11/24 History release rivaroxaban 20 mg tablet (Xarelto) 20 mg PO DAILY 11/11/24 11/11/24 History tirzepatide 2.5 mg/0.5 mL 2.5 mg subcut WK 11/11/24 11/11/24 History subcutaneous pen injector (Mounjaro) Patient History Medical History GI bleed CAD in [place] artery CHF (congestive heart failure) Hypertension Lung cancer Surgical History History of coronary artery stent placement Social History Smoking Status: Former smoker Tobacco Type: Cigarettes Hx Alcohol Use: Yes Alcohol type: beer Hx Substance Use: No Preferred Language: Upper Sorbian Communication Ability: Effective Facility Manager Required: No Beliefs That Will Affect Care: None Current Living Situation: Family Feels Safe at Home: Yes Safety Concerns: Feels Safe At This Time Assistive Devices: Cane Review of Systems Review of Systems: All other findings negative except as noted in HPI. Physical Exam Constitutional: WD/WN, vitals as above Respiratory: normal respiratory effort Cardiovascular: Rate/Rhythm: regular rate Gastrointestinal (Abdomen): normal bowel sounds, soft, nontender, no hepatosplenomegaly Skin: no rashes, warm and dry + bilat lower extrem edema Results & Data Vital Signs (Past 12 Hours) Vital Signs Temp Pulse Pulse Resp BP Pulse Ox O2 Del Method 11/12/24 08:36 98.2 F 51 L 18 154/63 H 96 Room Air 11/12/24 08:17 Room Air 11/12/24 02:27 98.1 F 49 L 16 147/55 H 96 Room Air 11/11/24 23:00 59 L 11/11/24 22:40 98.4 F 60 20 167/60 H 96 Room Air Laboratory Results 11/12/24 11/11/24 11/11/24 Range/Units 08:26 18:36 17:47 WBC 5.98 (4.8-10.8) K/ul RBC 2.84 L (4.70-6.10) M/uL Hgb 7.6 L (14.0-18.0) g/dl Hct 25.9 L (42.0-52.0) % MCV 91.2 (80.0-100.0) fL MCH 26.8 (25.0-34.0) pg MCHC 29.3 L (32.0-36.0) g/dL RDW Std Deviation 56.7 H (36.4-46.3) fL RDW Coeff of Jesus 17.1 H (11.5-14.5) % Plt Count 294 (130-400) K/uL MPV 10.9 (9.4-12.4) fL Immature Gran % (Auto) % Neut % (Auto) % Lymph % (Auto) % [place] % (Auto) % Eos % (Auto) % Baso % (Auto) % Reticulocyte % (Auto) (0.50-2.00) % Neut # (Auto) (1.40-6.50) K/uL Lymph # (Auto) (1.20-3.40) K/uL [place] # (Auto) (0.11-0.59) K/uL Eos # (Auto) (0.00-0.50) K/uL Baso # (Auto) (0.00-0.20) K/uL Reticulocyte # (0.020-0.100) 10^6/uL Immature Gran # (Auto) (0.01-0.20) K/uL Polychromasia Hypochromasia Ovalocytes PT (9.0-12.0) Seconds INR (0.9-1.1) APTT (21-31) Seconds PTT Ratio Sodium 137 (136-145) mmol/L Potassium 3.1 L (3.5-5.1) mmol/L Chloride 100 (98-107) mmol/L Carbon Dioxide 29 (21-32) mmol/L Anion Gap 8 (3-11) BUN 16 (6-23) mg/dl Creatinine 1.45 H (0.6-1.4) mg/dl Est Cr Clr Drug Dosing 61.6 ml/min eGFR 50.88 BUN/Creatinine Ratio 11.0 (10-20) Glucose 192 H (70-99(Fasting)) mg/dl Calcium 9.1 (8.6-10.3) mg/dl Phosphorus 3.6 (2.5-4.9) mg/dl Magnesium 2.2 (1.7-2.4) mg/dl Iron (35-175) mcg/dl TIBC (250-450) mcg/dl Transferrin (200-360) mg/dl Transferrin % Sat (20-50) % Total Bilirubin (0.2-1.0) mg/dl AST (13-39) U/L ALT (7-52) U/L Alkaline Phosphatase (34-104) U/L Troponin I High Sens 22.0 H (0-20) pg/ml B-Natriuretic Peptide 386 H (0-100) pg/ml Total Protein (6.0-8.3) gm/dl Albumin (3.4-5.0) gm/dl Globulin (2.5-4.0) gm/dl Albumin/Globulin Ratio (0.9-2) Lipase (11-82) U/L Blood Type Blood Type Recheck O Negative Antibody Screen Crossmatch 11/11/24 11/11/24 Range/Units 16:39 16:30 WBC 6.85 (4.8-10.8) K/ul RBC 2.44 L (4.70-6.10) M/uL Hgb 6.7 L* (14.0-18.0) g/dl Hct 23.1 L (42.0-52.0) % MCV 94.7 (80.0-100.0) fL MCH 27.5 (25.0-34.0) pg MCHC 29.0 L (32.0-36.0) g/dL RDW Std Deviation 54.1 H (36.4-46.3) fL RDW Coeff of Jesus 15.7 H (11.5-14.5) % Plt Count 290 (130-400) K/uL MPV 10.4 (9.4-12.4) fL Immature Gran % (Auto) 0.4 % Neut % (Auto) 76.6 % Lymph % (Auto) 11.7 % [place] % (Auto) 8.8 % Eos % (Auto) 1.9 % Baso % (Auto) 0.6 % Reticulocyte % (Auto) 7.09 H (0.50-2.00) % Neut # (Auto) 5.25 (1.40-6.50) K/uL Lymph # (Auto) 0.80 L (1.20-3.40) K/uL [place] # (Auto) 0.60 H (0.11-0.59) K/uL Eos # (Auto) 0.13 (0.00-0.50) K/uL Baso # (Auto) 0.04 (0.00-0.20) K/uL Reticulocyte # 0.180 H (0.020-0.100) 10^6/uL Immature Gran # (Auto) 0.03 (0.01-0.20) K/uL Polychromasia 1+ Hypochromasia Present Ovalocytes 1+ PT 19.8 H (9.0-12.0) Seconds INR 1.9 H (0.9-1.1) APTT 38 H (21-31) Seconds PTT Ratio 1.4 Sodium 140 (136-145) mmol/L Potassium 3.5 (3.5-5.1) mmol/L Chloride 101 (98-107) mmol/L Carbon Dioxide 28 (21-32) mmol/L Anion Gap 11 (3-11) BUN 18 (6-23) mg/dl Creatinine 1.40 (0.6-1.4) mg/dl Est Cr Clr Drug Dosing 63.8 ml/min eGFR 53.07 BUN/Creatinine Ratio 12.9 (10-20) Glucose 139 H (70-99(Fasting)) mg/dl Calcium 9.3 (8.6-10.3) mg/dl Phosphorus (2.5-4.9) mg/dl Magnesium (1.7-2.4) mg/dl Iron 17 L (35-175) mcg/dl TIBC 494 H (250-450) mcg/dl Transferrin 353 (200-360) mg/dl Transferrin % Sat 3 L (20-50) % Total Bilirubin 0.6 (0.2-1.0) mg/dl AST 14 (13-39) U/L ALT 12 (7-52) U/L Alkaline Phosphatase 79 (34-104) U/L Troponin I High Sens 22.5 H (0-20) pg/ml B-Natriuretic Peptide (0-100) pg/ml Total Protein 6.3 (6.0-8.3) gm/dl Albumin 3.6 (3.4-5.0) gm/dl Globulin 2.7 (2.5-4.0) gm/dl Albumin/Globulin Ratio 1.3 (0.9-2) Lipase 16 (11-82) U/L Blood Type O Negative Blood Type Recheck Antibody Screen NEGATIVE Crossmatch See Detail PG Care Time/CCT Total # of Minutes Spent Total Time Spent with Patient: Total time spent is greater than 50% in coordination of care (as documented) at patient's floor/unit and/or counseling patient: Coding Level of Care Code 78397 INT INP/OBS CARE 3/75MIN Diagnoses Chronic anticoagulation Z79.01 Iron deficiency anemia D50.9
[2024-11-12] MEDS ORDERED: SODIUM CHLORIDE 0.9% 100 ML IV PRN (09:58)
[2024-11-12] MEDS: POTASSIUM CHLORIDE CRTAB 20 MEQ TABCR PO SCH (12:13)
--- NOTE | 2024-11-12 12:45 | Electrocardiogram Report ---
Test Reason : Blood Pressure : */* mmHG Vent. Rate : 52 BPM Atrial Rate : 52 BPM P-R Int : 130 ms QRS Dur : 136 ms QT Int : 648 ms P-R-T Axes : * 40 23 degrees QTcB Int : 602 ms Sinus bradycardia Right bundle branch block Prolonged QT Abnormal ECG No previous ECGs available Confirmed by Jamar Storm ([id number] on 11/12/2024 12:45:48 PM Referred By: Kyle Santizo Confirmed By: Jamar Storm
--- NOTE | 2024-11-12 14:49 | Hospitalist Progress Note ---
Date of Service November 12, 2024 Assessment & Plan (1) Symptomatic anemia: (2) Elevated troponin I level: (3) Acute diastolic heart failure: (4) Iron deficiency anemia: (5) GI bleed: (6) CAD in [place] artery: (7) Hypertension: (8) Lung cancer: (9) COPD (chronic obstructive pulmonary disease): (10) Afib: (11) Chronic anticoagulation: Plan #Chronic blood loss / Symptomatic anemia #GIB #Iron deficiency anemia - pt will get 1 unit PRBC in the ED, additional unit given today - GI recs appreciated, plan for EGD on 11/13 - request records about previous EGD / C-scope - iron sat: 3%, iron 16, TIBC 494 - given pt has recent cardiac stents, pt on plavix, cardiology cleared for this to be held at this time - will place on clear liquid diet #AFib - cont amiodarone, diltiazem (confirm if pt is also on carvedilol) - pt has intermittent tachycardia and bradycardia - pt is on Xarelto, cont to hold #CHF - BNP pending - pt takes bumex 1mg po BID - s/p lasix 40mg IV x1 in the ED, cont 40mg IV daily - cont empagliflozin #HTN - pt on cont diltiazem (hold if HR < 55), hydralazine #Carotid artery stenosis - left carotid completely occluded - pt follows with Dr. Cárdenas #Constipation - iron induced - will order bowel regimen #HLD - cont atorvastatin #GERD - cont PPI #COPD - cont home nebulizers #ARON - trial CPAP while inpatient #Bradycardia - chronic, monitor at this time #DVT ppx: cont SCDs, holding xarelto for now #Code status: Full code, pt does state that if he does not return to baseline after his code and has severe neurological impairment, he does not want his life prolonged #Disposition: admit to PCU / Tele for closer monitoring Admission and Anticipated Discharge Date Admission Date: November 11, 2024 Subjective No acute events overnight Currently feeling better Review of Systems Review of Systems: Comprehensive ROS completed and is otherwise negative. Physical Exam Physical Exam: Gen: no acute distress, obese male, lying in bed comfortable HEENT: NC/AT, MMM Lungs: nonlabored breathing, CTAB (though some wheezing noted during conversation, suspect more upper airway) CVS: s1s2nl, RRR Abd: nl bowel sounds, soft, NT / ND : no martinez Ext: 2+ edema b/l, up to knees Neuro: AAOx3 Psych: calm, cooperative Results & Data Results & Data Vital Signs (Past 12 Hours) Vital Signs Temp Pulse Pulse Resp BP BP Pulse Ox 11/12/24 13:43 36.9 C 52 L 21 116/66 93 11/12/24 12:45 36.6 C 52 L 20 131/71 94 11/12/24 12:18 36.3 C L 58 L 18 150/62 H 95 11/12/24 11:42 36.5 C 88 20 145/66 H 94 11/12/24 11:41 36.7 C 57 L 20 149/66 H 95 11/12/24 11:23 36.7 C 50 L 20 140/54 L 94 11/12/24 08:36 36.8 C 51 L 18 154/63 H 96 11/12/24 08:17 O2 Del Method 11/12/24 13:43 11/12/24 12:45 11/12/24 12:18 11/12/24 11:42 11/12/24 11:41 11/12/24 11:23 11/12/24 08:36 Room Air 11/12/24 08:17 Room Air PG Care Time/CCT Total # of Minutes Spent Total Time Spent with Patient: Total time spent is greater than 50% in coordination of care (as documented) at patient's floor/unit and/or counseling patient: Coding Level of Care Code 37890 SUB INP/OBS CARE 2/35MIN Diagnoses Symptomatic anemia D64.9 Elevated troponin I level R79.89 Acute diastolic heart failure I50.31 Iron deficiency anemia D50.9 GI bleed K92.2 CAD in [place] artery I25.10 Hypertension I10 Lung cancer C34.90 COPD (chronic obstructive pulmonary disease) J44.9 Afib I48.91 Chronic anticoagulation Z79.01
[2024-11-12 15:05] LABS: Hematocrit (blood only) 27.0 % (42.0-52.0); Hemoglobin 8.1 g/dl (14.0-18.0)
[2024-11-12] MEDS: PANTOprazole 40 MG/10 ML SYR IV SCH (16:00)
[2024-11-12] MEDS: LAVAGE SOLUTION 4000ML PO SCH (16:35)
[2024-11-13 06:11] LABS: Hematocrit (blood only) 27.4 % (42.0-52.0); Hemoglobin 8.3 g/dl (14.0-18.0); Mean Corpuscular Hemoglobin 27.4 pg (25.0-34.0); Mean Corpuscular Volume 90.4 fL (80.0-100.0); Platelet Count 292 K/uL (130-400); RDW Standard Deviation 54.7 fL (36.4-46.3); Red Blood Count 3.03 M/uL (4.70-6.10); White Blood Count 6.76 K/ul (4.8-10.8)
[2024-11-13 06:27] LABS: Anion Gap 11.0 (3-11); Blood Urea Nitrogen 13.0 mg/dl (6-23); Calcium 8.8 mg/dl (8.6-10.3); Carbon Dioxide 29.0 mmol/L (21-32); Chloride 103.0 mmol/L (98-107); Creatinine Clr Calc Pharmacy 63.4 ml/min; Glucose 96.0 mg/dl (70-99(Fasting)); Magnesium 2.1 mg/dl (1.7-2.4); Potassium 3.2 mmol/L (3.5-5.1); Sodium 143.0 mmol/L (136-145)
--- NOTE | 2024-11-13 08:07 | Gastroenterology Progress Note ---
Date of Service November 13, 2024 Assessment & Plan (1) Chronic anticoagulation: Plan: 74 year old male with history of of CAD s/p PCI x3 (09/2024) on Plavix, HTN, HLD, ARON, COPD, anemia (EGD/Colonoscopy in [place] in 2023 negative per patient, lung cancer, AFib on Xarelto and others below admitted through the ED w/ anemia, dark and tarry stools which outdate initiation of iron supplementation NPO for EGD/Colonoscopy. Trend H&H. Monitor and document GI output. Transfuse PRN per primary team. IV PPI twice daily for 48 hours then convert to PO PPI 40 mg twice daily. Review records from EGD/Colonoscopy from [place] once they are obtained. Pending results of EGD/Colonoscopy OP VCE would be best next step in evaluation We appreciate assistance in the management of any serological abnormality and corrections to include: hemoglobin >7, INR <2, platelets >50,000, potassium levels >3.5 but <5.3, and sodium levels within 5 points of the reference range prior to endoscopic evaluation. (2) Iron deficiency anemia: Admission and Anticipated Discharge Date Admission Date: November 11, 2024 Supervising Physician Co-Signing Physician Notes I saw and examined this patient with our nurse practitioner and agree with her assessment and plan. No overt GI bleeding. Hemoglobin stable. Tolerated bowel prep. Will proceed with endoscopy and colonoscopy today. Subjective NPO for EGD/Colon today. Offers no GI concerns. No abd pain, nausea/vomiting. Review of Systems Review of Systems: All other findings negative except as noted in HPI. Physical Exam Respiratory: normal respiratory effort Skin: no rashes, warm and dry Results & Data Results & Data Vital Signs (Past 12 Hours) Vital Signs Temp Pulse Resp BP Pulse Ox O2 Del Method 11/13/24 07:16 98.4 F 61 18 144/66 H 94 Room Air 11/13/24 03:49 97.9 F 60 20 121/59 L 92 Room Air 11/12/24 23:02 98.1 F 56 L 18 156/56 H 95 Room Air Laboratory Results 11/13/24 11/12/24 11/12/24 Range/Units 05:24 14:30 08:26 WBC 6.76 5.98 (4.8-10.8) K/ul RBC 3.03 L 2.84 L (4.70-6.10) M/uL Hgb 8.3 L 8.1 L 7.6 L (14.0-18.0) g/dl Hct 27.4 L 27.0 L 25.9 L (42.0-52.0) % MCV 90.4 91.2 (80.0-100.0) fL MCH 27.4 26.8 (25.0-34.0) pg MCHC 30.3 L 29.3 L (32.0-36.0) g/dL RDW Std Deviation 54.7 H 56.7 H (36.4-46.3) fL RDW Coeff of Jesus 16.6 H 17.1 H (11.5-14.5) % Plt Count 292 294 (130-400) K/uL MPV 10.9 10.9 (9.4-12.4) fL Sodium 143 137 (136-145) mmol/L Potassium 3.2 L 3.1 L (3.5-5.1) mmol/L Chloride 103 100 (98-107) mmol/L Carbon Dioxide 29 29 (21-32) mmol/L Anion Gap 11 8 (3-11) BUN 13 16 (6-23) mg/dl Creatinine 1.41 H 1.45 H (0.6-1.4) mg/dl Est Cr Clr Drug Dosing 63.4 61.6 ml/min eGFR 52.62 50.88 BUN/Creatinine Ratio 9.2 L 11.0 (10-20) Glucose 96 192 H (70-99(Fasting)) mg/dl Calcium 8.8 9.1 (8.6-10.3) mg/dl Phosphorus 3.2 3.6 (2.5-4.9) mg/dl Magnesium 2.1 2.2 (1.7-2.4) mg/dl Blood Type Antibody Screen Crossmatch 11/11/24 Range/Units 16:39 WBC (4.8-10.8) K/ul RBC (4.70-6.10) M/uL Hgb (14.0-18.0) g/dl Hct (42.0-52.0) % MCV (80.0-100.0) fL MCH (25.0-34.0) pg MCHC (32.0-36.0) g/dL RDW Std Deviation (36.4-46.3) fL RDW Coeff of Jesus (11.5-14.5) % Plt Count (130-400) K/uL MPV (9.4-12.4) fL Sodium (136-145) mmol/L Potassium (3.5-5.1) mmol/L Chloride (98-107) mmol/L Carbon Dioxide (21-32) mmol/L Anion Gap (3-11) BUN (6-23) mg/dl Creatinine (0.6-1.4) mg/dl Est Cr Clr Drug Dosing ml/min eGFR BUN/Creatinine Ratio (10-20) Glucose (70-99(Fasting)) mg/dl Calcium (8.6-10.3) mg/dl Phosphorus (2.5-4.9) mg/dl Magnesium (1.7-2.4) mg/dl Blood Type O Negative Antibody Screen NEGATIVE Crossmatch See Detail PG Care Time/CCT Total # of Minutes Spent Total Time Spent with Patient: Total time spent is greater than 50% in coordination of care (as documented) at patient's floor/unit and/or counseling patient: Coding Level of Care Code None Diagnoses Chronic anticoagulation Z79.01 Iron deficiency anemia D50.9
[2024-11-13] MEDS: ALBUTEROL 0.083% NEBU SOLN 3 ML VIAL INH PRN (08:32)
--- NOTE | 2024-11-13 12:35 | Hospitalist Progress Note ---
Date of Service November 13, 2024 Assessment & Plan (1) Symptomatic anemia: (2) Elevated troponin I level: (3) Acute diastolic heart failure: (4) Iron deficiency anemia: (5) GI bleed: (6) CAD in [place] artery: (7) Hypertension: (8) Lung cancer: (9) COPD (chronic obstructive pulmonary disease): (10) Afib: (11) Chronic anticoagulation: Plan #Chronic blood loss / Symptomatic anemia #GIB #Iron deficiency anemia - pt will get 1 unit PRBC in the ED, additional unit given today - GI recs appreciated, plan for EGD on 11/13 - request records about previous EGD / C-scope - iron sat: 3%, iron 16, TIBC 494 - given pt has recent cardiac stents, pt on plavix, cardiology cleared for this to be held at this time - will place on clear liquid diet #AFib - cont amiodarone, diltiazem (confirm if pt is also on carvedilol) - pt has intermittent tachycardia and bradycardia - pt is on Xarelto, cont to hold #Hypokalemia - replete and monitor #CHF - BNP pending - pt takes bumex 1mg po BID - s/p lasix 40mg IV x1 in the ED, cont 40mg IV daily - cont empagliflozin #HTN - pt on cont diltiazem (hold if HR < 55), hydralazine #Carotid artery stenosis - left carotid completely occluded - pt follows with Dr. Cárdenas #Constipation - iron induced - will order bowel regimen #HLD - cont atorvastatin #GERD - cont PPI #COPD - cont home nebulizers #ARON - trial CPAP while inpatient #Bradycardia - chronic, monitor at this time #DVT ppx: cont SCDs, holding xarelto for now #Code status: Full code, pt does state that if he does not return to baseline after his code and has severe neurological impairment, he does not want his life prolonged #Disposition: admit to PCU / Tele for closer monitoring Admission and Anticipated Discharge Date Admission Date: November 11, 2024 Subjective NPO for EGD/Colon today. No complaints at this time Review of Systems Review of Systems: Comprehensive ROS completed and is otherwise negative. Physical Exam Physical Exam: Gen: no acute distress, obese male, lying in bed comfortable HEENT: NC/AT, MMM Lungs: nonlabored breathing, CTAB (though some wheezing noted during conversation, suspect more upper airway) CVS: s1s2nl, RRR Abd: nl bowel sounds, soft, NT / ND : no martinez Ext: 2+ edema b/l, up to knees Neuro: AAOx3 Psych: calm, cooperative Results & Data Results & Data Vital Signs (Past 12 Hours) Vital Signs Temp Pulse Resp BP Pulse Ox O2 Del Method 11/13/24 12:07 36.7 C 61 18 179/65 H 95 Room Air 11/13/24 11:37 37.1 C 60 18 173/64 H 94 Room Air 11/13/24 08:34 60 16 94 Room Air 11/13/24 08:30 Room Air 11/13/24 07:16 36.9 C 61 18 144/66 H 94 Room Air 11/13/24 03:49 36.6 C 60 20 121/59 L 92 Room Air PG Care Time/CCT Total # of Minutes Spent Total Time Spent with Patient: Total time spent is greater than 50% in coordination of care (as documented) at patient's floor/unit and/or counseling patient: Coding Level of Care Code 44176 SUB INP/OBS CARE 2/35MIN Diagnoses Symptomatic anemia D64.9 Elevated troponin I level R79.89 Acute diastolic heart failure I50.31 Iron deficiency anemia D50.9 GI bleed K92.2 CAD in [place] artery I25.10 Hypertension I10 Lung cancer C34.90 COPD (chronic obstructive pulmonary disease) J44.9 Afib I48.91 Chronic anticoagulation Z79.01
--- NOTE | 2024-11-13 12:51 | Anesthesiology Consultation ---
Date of Service November 13, 2024 Assessment & Plan Chart Review Chart Review: Acceptable Risk for Surgery and Patient NOT seen in Pre Admission Testing Consults Requested none ASA [id number] Proposed Anesthesia Anesthesia Type: MAC Risk / Benefits Reviewed With: PT / POA / Parent / Guardian, Accepts Plan and Informed Consent Obtained Additional Comments: currently sinus rhythm History Surgery Operation Date: 11/13/24 17:10 Proposed Procedures p Colonoscopy EGD Dr. Matt Gutierrez MD Height/Weight Height: 5 ft 7 in Weight: 141.7 kg Allergies Allergy/AdvReac Type Severity Reaction Status Date / Time Iodinated Contrast Media Allergy Intermediate Irritable Unverified 11/11/24 19:17 Medications Home Medications Medication Instructions Recorded Confirmed Last Taken albuterol sulfate 2.5 mg/3 mL 2.5 mg inhalation Q6H PRN Wheezing 11/11/24 11/11/24 Unknown (0.083 %) solution for nebulization amiodarone 200 mg tablet 200 mg PO DAILY 11/11/24 11/11/24 Unknown atorvastatin 40 mg tablet 40 mg PO HS 11/11/24 11/11/24 Unknown budesonide 160 mcg-glycopyr 9 1 inh inhalation BID 11/11/24 11/11/24 Unknown mcg-formot 4.8 mcg/actuation HFA inhaler (Breztri Aerosphere) bumetanide 1 mg tablet 1 mg PO BID 11/11/24 11/11/24 Unknown carvedilol 25 mg tablet 25 mg PO BID 11/11/24 11/11/24 Unknown clopidogrel 75 mg tablet 75 mg PO DAILY 11/11/24 11/11/24 Unknown diltiazem HCl 360 mg capsule,24 360 mg PO DAILY 11/11/24 11/11/24 Unknown hr,extended release empagliflozin 10 mg tablet 10 mg PO DAILY 11/11/24 11/11/24 Unknown (Jardiance) ferrous sulfate 325 mg (65 mg 325 mg PO DAILY 11/11/24 11/11/24 Unknown iron) tablet hydralazine 100 mg tablet 100 mg PO TID 11/11/24 11/11/24 Unknown loratadine 10 mg tablet 10 mg PO DAILY 11/11/24 11/11/24 Unknown multivitamin 1 tab PO DAILY 11/11/24 11/11/24 Unknown pantoprazole 40 mg tablet,delayed 40 mg PO DAILY 11/11/24 11/11/24 Unknown release rivaroxaban 20 mg tablet (Xarelto) 20 mg PO DAILY 11/11/24 11/11/24 Unknown tirzepatide 2.5 mg/0.5 mL 2.5 mg subcut WK 11/11/24 11/11/24 Unknown subcutaneous pen injector (Stephanie) Active Medications Generic Name Dose Route Start Last Admin Trade Name Freq PRN Reason Stop Dose Admin Acetaminophen 650 mg 11/11/24 22:20 11/12/24 19:26 Acetaminophen 325 Mg Tab PO 12/11/24 22:19 650 mg Q4H PRN Administration Pain or Fever Albuterol 2.5 mg 11/11/24 21:02 11/13/24 08:32 Albuterol 0.083% Nebu Soln 3 Ml Vial INH 12/11/24 21:01 2.5 mg Q6H PRN Administration Wheezing Protocol Amiodarone HCl 200 mg 11/12/24 09:00 11/13/24 07:38 Amiodarone 200 Mg Tab PO 12/12/24 08:59 200 mg DAILY PEG Administration Atorvastatin Calcium 40 mg 11/11/24 21:02 11/12/24 19:27 Atorvastatin 40 Mg Tab PO 12/11/24 21:01 40 mg HS PEG Administration Bumetanide 1 mg 11/12/24 09:00 11/13/24 07:38 Bumetanide 1 Mg Tab PO 12/12/24 08:59 1 mg BID PEG Administration Carvedilol 25 mg 11/11/24 21:02 11/13/24 07:37 Carvedilol 25 Mg Tab PO 12/11/24 21:01 25 mg BID PEG Administration Clopidogrel Bisulfate 75 mg 11/12/24 09:00 11/12/24 07:44 Clopidogrel Bisulfate 75 Mg Tab PO 12/12/24 08:59 75 mg DAILY PEG Administration Diltiazem HCl 360 mg 11/12/24 09:00 11/13/24 07:37 Diltiazem Hcl 180 Mg Capcr PO 12/12/24 08:59 360 mg DAILY PEG Administration Empagliflozin 10 mg 11/12/24 09:00 11/13/24 07:38 Empagliflozin 10 Mg Tab PO 12/12/24 08:59 10 mg DAILY PEG Administration Ferrous Sulfate 325 mg 11/12/24 09:00 11/13/24 07:38 Ferrous Sulfate 325 Mg Tab PO 12/12/24 08:59 325 mg DAILY PEG Administration Fluticasone Furoate 1 puffs 11/12/24 09:00 11/13/24 07:38 Fluticasone Furoate 100mcg 14 Puffs/Inhaler INH 12/12/24 08:59 1 puffs DAILY PEG Administration Hydralazine HCl 100 mg 11/11/24 21:02 11/13/24 07:36 Hydralazine Tab 50 Mg Tab PO 12/11/24 21:01 100 mg TID PEG Administration Pantoprazole Sodium 40 mg in 10 mls @ 5 mls/min 11/12/24 14:50 11/13/24 07:38 Protonix IV 12/12/24 14:49 5 mls/min BID PEG Administration Loratadine 10 mg 11/12/24 09:00 11/13/24 07:37 Loratadine 10 Mg Tab PO 12/12/24 08:59 10 mg DAILY PEG Administration Melatonin 3 mg 11/12/24 01:26 11/12/24 01:51 Melatonin 3 Mg Tab PO 12/12/24 01:25 3 mg HS PRN Administration Sleep Pantoprazole Sodium 40 mg 11/12/24 09:00 11/12/24 07:43 Pantoprazole 40 Mg Tab PO 12/12/24 08:59 40 mg DAILY PEG Administration Polyethylene Glycol 17 gm 11/11/24 21:02 11/12/24 07:42 Polyethylene (Miralax) 17 Gm Pack PO 12/11/24 21:01 17 gm DAILY PRN Administration Constipation Polyethylene Glycol/Electrolytes 16 dose 11/12/24 16:30 11/12/24 16:35 Lavage Solution 4000ml PO 12/12/24 16:29 16 dose DAILY@1630 PEG Administration Umeclidinium/Vilanterol 1 puffs 11/12/24 09:00 11/13/24 07:39 Umeclidinium/Vilanterol 62.5/25mcg 7 Puffs/Inhaler INH 12/12/24 08:59 1 puffs DAILY PEG Administration NPO Date Last Intake of Fluids: 11/13/24 Time Last Intake of Fluids: 07:00 Last Intake of Fluids Comment: sip with meds Date Last Intake of Solids: 11/11/24 Time Last Intake of Solids: 08:00 Past Medical History Medical History GI bleed CAD in [place] artery CHF (congestive heart failure) Hypertension Lung cancer Past Surgical History Surgical History History of coronary artery stent placement Social History Smoking Status: Former smoker Hx Alcohol Use: Yes Alcohol type: beer alcohol intake frequency: holidays/special occasions only Hx Substance Use: No substance use type: does not use Review of Systems ROS Unobtainable: All systems reviewed & are unremarkable except as noted in HPI & below Physical Exam Vital Signs Last Vital Signs Temp 36.7 C 11/13/24 12:07 Pulse 61 11/13/24 12:07 Resp 18 11/13/24 12:07 BP 179/65 H 11/13/24 12:07 Pulse Ox 95 11/13/24 12:07 O2 Del Method Room Air 11/13/24 12:07 O2 Flow Rate 0 11/11/24 19:30 Constitutional WD/WN, vitals as above + morbidly obese; no acute distress Eyes PERRL, conjunctivae normal, anicteric sclerae ENMT external ear and nose normal, oropharynx normal Mouth: no dentition abnormality Thyromental Distance: > or= 3.5 Finger Breadths Mallampati Class: II Neck trachea midline, no thyromegaly normal visual inspection Respiratory normal respiratory effort, lungs clear to auscultation normal respiratory effort; no respiratory distress Auscultation: + diminished lung sounds Cardiovascular RRR, no murmur, no edema Rate/Rhythm: regular rate and regular rhythm Musculoskeletal Head/Neck/Chest: normocephalic and head atraumatic Spine: normal cervical ROM and no pain with cervical ROM Extremities: extremities normal to inspection and strength 5/5 throughout; full ROM of extremities Skin no rashes, warm and dry Neurologic moves all extremities Motor/Sensory: no sensory deficit Psychiatric A+Ox3, euthymic affect Testing Laboratory Results 11/13/24 05:24 11/13/24 05:24 PT 19.8 Seconds (9.0-12.0) H 11/11/24 16:30 INR 1.9 (0.9-1.1) H 11/11/24 16:30 APTT 38 Seconds (21-31) H 11/11/24 16:30 Blood Type O Negative 11/11/24 16:39 Antibody Screen NEGATIVE 11/11/24 16:39
--- NOTE | 2024-11-13 13:29 | GI REPORT ---
[facility] Patient: CECY FITZGERALD : 1950 Sex at : Male Age: 74 Years Procedure: Colonoscopy Date: 11/13/2024 Attending Physician: Onesimo Gutierrez MD Referring MD: Kyle Santizo; Cinthia Lou MD Indications: - GI bleeding Medications: - Monitored Anesthesia Care Complications: - No immediate complications. Procedure: - Prior to the procedure, a History and Physical was performed, and patient medications and allergies were reviewed. The patient's tolerance of previous anesthesia was also reviewed. The risks and benefits of the procedure and the sedation options and risks were discussed with the patient. All questions were answered, and informed consent was obtained. [Anticoagulant Agents] [Days Prior to Procedure]. [ASA Grade]. After reviewing the risks and benefits, the patient was deemed in satisfactory condition to undergo the procedure. - The adult colonoscope was introduced through the anus and advanced to the cecum, identified by appendiceal orifice and ileocecal valve. - The colonoscopy was performed without difficulty. - The patient tolerated the procedure well. - The quality of the bowel preparation was [Prep Quality]. - [Anatomical Structures] photographed. Findings: - Multiple diverticula were found in the entire colon. - The exam was otherwise without abnormality. Impression: - Diverticulosis in the entire examined colon. - The examination was otherwise normal. - No specimens collected. Recommendation: - Resume previous diet. - Patient has a contact number available for emergencies. The signs and symptoms of potential delayed complications were discussed with the patient. Return to normal activities tomorrow. Written discharge instructions were provided to the patient. Procedure Code(s): - 28942, Colonoscopy, flexible; diagnostic, including collection of specimen(s) by brushing or washing, when performed (separate procedure) Diagnosis Code(s): - K57.30, Diverticulosis of large intestine without perforation or abscess without bleeding CPT(R) - 2023 copyright [employer]. All Rights Reserved. The CPT codes, CCI edits and ICD codes generated are intended as suggestions and were generated based on input data. These codes are preliminary and upon personnel monitor review may be revised to meet current compliance and payer requirements. The provider is responsible for the final determination of appropriate codes, and modifiers. Onesimo Gutierrez MD This document has been electronically signed. Note Initiated:11/13/2024 Note Completed:11/13/2024 1:29 PM [email or web address]\Provation\Results\LIVE\[id number]
--- NOTE | 2024-11-13 13:35 | GI REPORT ---
[facility] Patient: CECY FITZGERALD : 1950 Sex at : Male Age: 74 Years Procedure: Upper GI endoscopy Date: 11/13/2024 Attending Physician: Onesimo Gutierrez MD Referring MD: Kyle Santizo; Cinthia Lou MD Indications: - Suspected upper gastrointestinal bleeding Medications: - Monitored Anesthesia Care Complications: - No immediate complications. Procedure: - Prior to the procedure, a History and Physical was performed, and patient medications and allergies were reviewed. The patient's tolerance of previous anesthesia was also reviewed. The risks and benefits of the procedure and the sedation options and risks were discussed with the patient. All questions were answered, and informed consent was obtained. [Anticoagulant Agents] [Days Prior to Procedure]. [ASA Grade]. After reviewing the risks and benefits, the patient was deemed in satisfactory condition to undergo the procedure. - The egd scope was introduced through the mouth and advanced to the third part of the duodenum. - The upper GI endoscopy was accomplished without difficulty. - The patient tolerated the procedure well. Findings: - The examined esophagus was normal. - The entire examined stomach was normal. - Active mucosal bleeding, fresh red blood was found in the third portion of the duodenum c/w a [place] Lesion. To stop active bleeding, two hemostatic clips were successfully placed. There was no bleeding at the end of the procedure. Impression: - Normal esophagus. - Normal stomach. - Blood in the third portion of the duodenum. Clips were placed. - No specimens collected. Recommendation: - Resume previous diet. - Patient has a contact number available for emergencies. The signs and symptoms of potential delayed complications were discussed with the patient. Return to normal activities tomorrow. Written discharge instructions were provided to the patient. Procedure Code(s): - 42864, Esophagogastroduodenoscopy, flexible, transoral; with control of bleeding, any method Diagnosis Code(s): - K92.2, Gastrointestinal hemorrhage, unspecified CPT(R) - 202 copyright [employer]. All Rights Reserved. The CPT codes, CCI edits and ICD codes generated are intended as suggestions and were generated based on input data. These codes are preliminary and upon rug receiving clerk review may be revised to meet current compliance and payer requirements. The provider is responsible for the final determination of appropriate codes, and modifiers. Onesimo Gutierrez MD This document has been electronically signed. Note Initiated:11/13/2024 Note Completed:11/13/2024 1:34 PM [email or web address]\Provation\Results\LIVE\[id number]
[2024-11-13] MEDS: PHENYLEPHRINE HCL 10 MG/ML VIAL ONE (14:33)
[2024-11-13] MEDS: LIDOCAINE 2% 2 ML VIAL/AMP(20MG/ML) INFIL ONE (14:33)
[2024-11-13] MEDS: PROPOFOL IV EMULSION 10 MG/ML 20 ML VIAL IV ONE (14:33)
[2024-11-14 06:50] LABS: Hematocrit (blood only) 26.5 % (42.0-52.0); Hemoglobin 7.8 g/dl (14.0-18.0); Mean Corpuscular Hemoglobin 26.8 pg (25.0-34.0); Mean Corpuscular Volume 91.1 fL (80.0-100.0); Platelet Count 268 K/uL (130-400); RDW Standard Deviation 55.4 fL (36.4-46.3); Red Blood Count 2.91 M/uL (4.70-6.10); White Blood Count 5.02 K/ul (4.8-10.8)
[2024-11-14 07:14] LABS: Anion Gap 8.0 (3-11); Blood Urea Nitrogen 11.0 mg/dl (6-23); Carbon Dioxide 29.0 mmol/L (21-32); Chloride 104.0 mmol/L (98-107); Potassium 3.3 mmol/L (3.5-5.1); Sodium 141.0 mmol/L (136-145)
[2024-11-14 07:15] LABS: Calcium 8.6 mg/dl (8.6-10.3); Creatinine Clr Calc Pharmacy 63.3 ml/min; Glucose 110.0 mg/dl (70-99(Fasting)); Magnesium 2.1 mg/dl (1.7-2.4)
[2024-11-14] MEDS: CLOPIDOGREL BISULFATE 75 MG TAB PO SCH (08:18)
[2024-11-14] MEDS: POTASSIUM CHLORIDE 20 MEQ/15 ML UDC PO STA (08:45)
[2024-11-14] MEDS: BUMETANIDE 1 MG in SYRINGE 0 ML IV SCH (08:45)
--- NOTE | 2024-11-14 08:48 | Cardiology Progress Note ---
Date of Service November 14, 2024 Assessment & Plan (1) CAD (coronary artery disease): Plan: Status post cath x 3 stents in September 2024 with PCI to LAD 80% proximal to mid as well as a 70% mid circumflex (2) Paroxysmal atrial fibrillation: (3) Acute diastolic heart failure: (4) Symptomatic anemia: (5) Elevated troponin I level: (6) Rectal bleeding: (7) Carotid artery disease: (8) Pulmonary hypertension: Plan: His wedge pressure and LVEDP at the time of his catheterization was quite elevated 30-35. His pulmonary artery pressures were 65/28 which is severe Admission and Anticipated Discharge Date Admission Date: November 11, 2024 PMHX: 1. CAD s/p Cath x3 September 2024 with PCI to LAD with 80% prox to mid and distal lesions; 70% mid cx -- Residual diffise 40% cx and non obstructive RCA dz -- RA 20-25 -- PA 67/28 with mean 44 mm/hg -- Wedge 30-35 -- LVEDP 30-35 2. Tob ABuse 4PPD stopping in 2023 3. Hx Lung CA s/p RUL and RML ressection 4. NML LV fxn 5. Atrial Flutter on AC and Amio 6. Possible occlusion of his left ICA and 50 to 60% of his right 7. Obesity 8. ARON and Probable OHS intolerant of CPAP 9. 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 DM Type 2 11. HTN 12. HLD Mr. Rascon had successful clipping of a Dieulafoy lesion of duodenum yesterday. I discussed with Dr. Gutierrez who was in agreement with resuming Plavix and Xeralto. Given Mr. Rascon's cardiac stenting less than 2 months ago, I would not want to hold these medications any longer than absolutely necessary. His hgb should continue to be watched closely. He is significantly fluid overloaded and I would recommend more aggressive diuresis. I have changed his po Bumex to 1mg IV bid. Strict Is&Os. Daily weights. I would push his diuretics until his BUN and creatinine start to bump. His pulmonary hypertension is likely multifactorial related to diastolic heart failure, sleep apnea and obesity hypoventilation syndrome. Entresto can be initiated when he's diuresed a bit more, he should have a script at discharge. His potassium should be replaced with a goal of 4.0 given his history of afib. I will defer to the hospitalists on electrolyte supplementation. Further diuresis will likely improve his blood pressure. He is in SR on the monitor. He continues on amiodarone for rhythm control. I would recommend he remain in the hospital over the weekend for IV diuretics and close monitoring for any further bleeding. Subjective Mr. Rascon continues to sleep in a chair due to orthopnea. He has significant lower extremity edema. No chest pain. He is in SR/SB on telemetry. Review of Systems Review of Systems: All systems reviewed & are unremarkable except as noted in HPI & below Physical Exam Constitutional: WD/WN, vitals as above Respiratory: normal respiratory effort, lungs clear to auscultation Cardiovascular: Rate/Rhythm: regular rate and regular rhythm Heart Sounds: normal S1 and normal S2 Extremities: + edema (bilateral LE) Skin: no rashes, warm and dry Neurologic: moves all extremities and awake Psychiatric: A+Ox3, euthymic affect Results & Data Vital Signs (Past 12 Hours) Vital Signs Temp Pulse Pulse Resp BP Pulse Ox O2 Del Method 11/14/24 07:12 36.8 C 56 L 18 152/64 H 94 Room Air 11/14/24 03:30 36.6 C 55 L 16 146/50 H 91 Room Air 11/13/24 23:49 58 L 11/13/24 23:20 36.6 C 58 L 18 138/51 L 95 Room Air
--- NOTE | 2024-11-14 09:58 | Gastroenterology Progress Note ---
Date of Service November 14, 2024 Assessment & Plan (1) Dieulafoy lesion of duodenum: Plan: -Continue IV PPI -Continue to monitor H/H -Continue to monitor for active/ongoing GI bleeding Admission and Anticipated Discharge Date Admission Date: November 11, 2024 Supervising Physician Co-Signing Physician Notes I saw and examined this patient with our nurse practitioner and agree with her assessment and plan. Stable post endoscopy. No signs of overt bleeding. Okay to restart anticoagulation. Continue PPI. Call if any further issues. Subjective Patient is a 74 yo male who underwent an EGD & colonoscopy on 11/13/24. Colonoscopy was unremarkable for any active bleeding. EGD indicated a Dieulafoy lesion that was clipped. He denies melena, hematemesis, or hematochezia. He notes he has not moved his bowels since prior to his EGD. H/H this AM is 7.8/26.5. No new GI symptoms at present. Review of Systems Constitutional: no fever and no chills Respiratory: + dyspnea on exertion Gastrointestinal: no abdominal pain, no coffee ground emesis, no hematemesis, no diarrhea/loose stools, no blood in stools and no melena Physical Exam Constitutional: well developed Respiratory: normal respiratory effort Cardiovascular: Rate/Rhythm: regular rate Gastrointestinal (Abdomen): normal bowel sounds, soft, nontender, no hepatosplenomegaly Psychiatric: Orientation: alert and oriented x 3 Results & Data Results & Data Vital Signs (Past 12 Hours) Vital Signs Temp Pulse Pulse Resp BP Pulse Ox O2 Del Method 11/14/24 09:11 Room Air 11/14/24 07:12 36.8 C 56 L 18 152/64 H 94 Room Air 11/14/24 03:30 36.6 C 55 L 16 146/50 H 91 Room Air 11/13/24 23:49 58 L 11/13/24 23:20 36.6 C 58 L 18 138/51 L 95 Room Air Laboratory Results Laboratory Results - last 48 hr 11/13/24 11/14/24 05:24 06:08 WBC 6.76 5.02 RBC 3.03 L 2.91 L Hgb 8.3 L 7.8 L Hct 27.4 L 26.5 L MCV 90.4 91.1 MCH 27.4 26.8 MCHC 30.3 L 29.4 L RDW Std Deviation 54.7 H 55.4 H RDW Coeff of Jesus 16.6 H 16.6 H Plt Count 292 268 MPV 10.9 10.9 Sodium 143 141 Potassium 3.2 L 3.3 L Chloride 103 104 Carbon Dioxide 29 29 Anion Gap 11 8 BUN 13 11 Creatinine 1.41 H 1.42 H Est Cr Clr Drug Dosing 63.4 63.3 eGFR 52.62 52.18 BUN/Creatinine Ratio 9.2 L 7.7 L Glucose 96 110 H Calcium 8.8 8.6 Phosphorus 3.2 4.3 D Magnesium 2.1 2.1 B-Natriuretic Peptide 315 H PG Care Time/CCT Total # of Minutes Spent Total Time Spent with Patient: Total time spent is greater than 50% in coordination of care (as documented) at patient's floor/unit and/or counseling patient: Coding Level of Care Code 97857 SUB INP/OBS CARE MIN Diagnoses Dieulafoy lesion of duodenum K31.82
[2024-11-14] MEDS: RIVAROXABAN 20 MG TAB PO SCH (16:06)
--- NOTE | 2024-11-14 22:16 | Hospitalist Progress Note ---
Date of Service November 14, 2024 Assessment & Plan (1) Symptomatic anemia: (2) Elevated troponin I level: (3) Acute diastolic heart failure: (4) Iron deficiency anemia: (5) GI bleed: (6) CAD in [place] artery: (7) Hypertension: (8) Lung cancer: (9) COPD (chronic obstructive pulmonary disease): (10) Afib: (11) Chronic anticoagulation: Plan #Chronic blood loss / Symptomatic anemia #GIB #Iron deficiency anemia - pt will get 1 unit PRBC in the ED, additional unit given today - GI recs appreciated, plan for EGD on 11/13 - request records about previous EGD / C-scope - iron sat: 3%, iron 16, TIBC 494 - given pt has recent cardiac stents, pt on plavix, cardiology cleared for this to be held at this time - hemoglobin stable, advanced diet #AFib - cont amiodarone, diltiazem (confirm if pt is also on carvedilol) - pt has intermittent tachycardia and bradycardia - pt is on Xarelto, cont to hold #Hypokalemia - replete and monitor #CHF - BNP pending - pt takes bumex 1mg po BID - transitioned t bumex 1 mg IV BID - cont empagliflozin #HTN - pt on cont diltiazem (hold if HR < 55), hydralazine #Carotid artery stenosis - left carotid completely occluded - pt follows with Dr. Cárdenas #Constipation - iron induced - will order bowel regimen #HLD - cont atorvastatin #GERD - cont PPI #COPD - cont home nebulizers #ARON - trial CPAP while inpatient #Bradycardia - chronic, monitor at this time #DVT ppx: cont SCDs, holding xarelto for now #Code status: Full code, pt does state that if he does not return to baseline after his code and has severe neurological impairment, he does not want his life prolonged #Disposition: admit to PCU / Tele for closer monitoring Admission and Anticipated Discharge Date Admission Date: November 11, 2024 Subjective Patient reports feeling well. Physical Exam Physical Exam: Gen: no acute distress, obese male, lying in bed comfortable HEENT: NC/AT, MMM Lungs: nonlabored breathing, CTAB (though some wheezing noted during conversation, suspect more upper airway) CVS: s1s2nl, RRR Abd: nl bowel sounds, soft, NT / ND : no martinez Ext: 2+ edema b/l, up to knees Neuro: AAOx3 Psych: calm, cooperative Results & Data Results & Data Vital Signs (Past 12 Hours) Vital Signs Temp Pulse Resp BP Pulse Ox O2 Del Method 11/14/24 20:18 36.9 C 52 L 17 161/66 H 96 Room Air 11/14/24 20:00 Room Air 11/14/24 15:07 36.9 C 49 L 16 138/50 L 95 Room Air 11/14/24 11:31 37.0 C 56 L 18 157/70 H 95 Room Air PG Care Time/CCT Total # of Minutes Spent Total Time Spent with Patient: Total time spent is greater than 50% in coordination of care (as documented) at patient's floor/unit and/or counseling patient: Coding Level of Care Code 23922 SUB INP/OBS CARE 3/50MIN Diagnoses Symptomatic anemia D64.9 Elevated troponin I level R79.89 Acute diastolic heart failure I50.31 Iron deficiency anemia D50.9 GI bleed K92.2 CAD in [place] artery I25.10 Hypertension I10 Lung cancer C34.90 COPD (chronic obstructive pulmonary disease) J44.9 Afib I48.91 Chronic anticoagulation Z79.01
[2024-11-15 07:01] LABS: Hematocrit (blood only) 27.5 % (42.0-52.0); Hemoglobin 8.1 g/dl (14.0-18.0); Mean Corpuscular Hemoglobin 26.8 pg (25.0-34.0); Mean Corpuscular Volume 91.1 fL (80.0-100.0); Platelet Count 265 K/uL (130-400); RDW Standard Deviation 52.9 fL (36.4-46.3); Red Blood Count 3.02 M/uL (4.70-6.10); White Blood Count 5.30 K/ul (4.8-10.8)
[2024-11-15 07:27] LABS: Alanine Aminotransferase 10.0 U/L (7-52); Albumin Globulin Ratio 1.5 (0.9-2); Alkaline Phosphatase 81.0 U/L (34-104); Anion Gap 8.0 (3-11); Bilirubin,Total 0.6 mg/dl (0.2-1.0); Blood Urea Nitrogen 14.0 mg/dl (6-23); Calcium 8.8 mg/dl (8.6-10.3); Carbon Dioxide 30.0 mmol/L (21-32); Chloride 103.0 mmol/L (98-107); Creatinine Clr Calc Pharmacy 59.3 ml/min; Globulin 2.3 gm/dl (2.5-4.0); Glucose 119.0 mg/dl (70-99(Fasting)); Potassium 3.3 mmol/L (3.5-5.1); Sodium 141.0 mmol/L (136-145); Total Protein 5.7 gm/dl (6.0-8.3)
--- NOTE | 2024-11-15 22:51 | Hospitalist Progress Note ---
Date of Service November 15, 2024 Assessment & Plan (1) Symptomatic anemia: (2) Elevated troponin I level: (3) Acute diastolic heart failure: (4) Iron deficiency anemia: (5) GI bleed: (6) CAD in [place] artery: (7) Hypertension: (8) Lung cancer: (9) COPD (chronic obstructive pulmonary disease): (10) Afib: (11) Chronic anticoagulation: Plan #Chronic blood loss / Symptomatic anemia #GIB #Iron deficiency anemia - pt will get 1 unit PRBC in the ED, additional unit given today - GI recs appreciated, plan for EGD on 11/13 - request records about previous EGD / C-scope - iron sat: 3%, iron 16, TIBC 494 - given pt has recent cardiac stents, pt on plavix, cardiology cleared for this to be held at this time - hemoglobin stable, advanced diet #AFib - cont amiodarone, diltiazem (confirm if pt is also on carvedilol) - pt has intermittent tachycardia and bradycardia - pt is on Xarelto, cont to hold #Hypokalemia - continue to replete #CHF - BNP pending - pt takes bumex 1mg po BID - transitioned t bumex 1 mg IV BID -will increase to 2 mg of bumex in AM - cont empagliflozin #HTN - pt on cont diltiazem (hold if HR < 55), hydralazine #Carotid artery stenosis - left carotid completely occluded - pt follows with Dr. Cárdenas #Constipation - iron induced - will order bowel regimen #HLD - cont atorvastatin #GERD - cont PPI #COPD - cont home nebulizers #ARON - trial CPAP while inpatient #Bradycardia - chronic, monitor at this time #DVT ppx: cont SCDs, holding xarelto for now #Code status: Full code, pt does state that if he does not return to baseline after his code and has severe neurological impairment, he does not want his life prolonged #Disposition: admit to PCU / Tele for closer monitoring Admission and Anticipated Discharge Date Admission Date: November 11, 2024 Subjective Patient reports no new symptoms. Physical Exam Physical Exam: Gen: no acute distress, obese male, lying in bed comfortable HEENT: NC/AT, MMM Lungs: nonlabored breathing, CTAB (though some wheezing noted during conversation, suspect more upper airway) CVS: s1s2nl, RRR Abd: nl bowel sounds, soft, NT / ND : no martinez Ext: 2+ edema b/l, up to knees Neuro: AAOx3 Psych: calm, cooperative Results & Data Results & Data Vital Signs (Past 12 Hours) Vital Signs Temp Pulse Pulse Resp BP Pulse Ox O2 Del Method 11/15/24 22:34 54 L 11/15/24 20:13 37.0 C 50 L 17 164/68 H 96 Room Air 11/15/24 20:00 63 164/66 H 11/15/24 19:00 Room Air 11/15/24 15:49 37.1 C 46 L 20 113/68 95 Room Air 11/15/24 15:00 50 L 11/15/24 12:00 36.7 C 53 L 20 162/70 H 96 Room Air PG Care Time/CCT Total # of Minutes Spent Total Time Spent with Patient: Total time spent is greater than 50% in coordination of care (as documented) at patient's floor/unit and/or counseling patient: Coding Level of Care Code 87402 SUB INP/OBS CARE 3/50MIN Diagnoses Symptomatic anemia D64.9 Elevated troponin I level R79.89 Acute diastolic heart failure I50.31 Iron deficiency anemia D50.9 GI bleed K92.2 CAD in [place] artery I25.10 Hypertension I10 Lung cancer C34.90 COPD (chronic obstructive pulmonary disease) J44.9 Afib I48.91 Chronic anticoagulation Z79.01
[2024-11-16 07:10] LABS: Hematocrit (blood only) 27.6 % (42.0-52.0); Hemoglobin 7.9 g/dl (14.0-18.0); Mean Corpuscular Hemoglobin 26.1 pg (25.0-34.0); Mean Corpuscular Volume 91.1 fL (80.0-100.0); Platelet Count 239 K/uL (130-400); RDW Standard Deviation 51.8 fL (36.4-46.3); Red Blood Count 3.03 M/uL (4.70-6.10); White Blood Count 5.70 K/ul (4.8-10.8)
[2024-11-16 07:46] LABS: Anion Gap 6.0 (3-11); Blood Urea Nitrogen 17.0 mg/dl (6-23); Calcium 8.4 mg/dl (8.6-10.3); Carbon Dioxide 32.0 mmol/L (21-32); Chloride 104.0 mmol/L (98-107); Creatinine Clr Calc Pharmacy 68.2 ml/min; Glucose 116.0 mg/dl (70-99(Fasting)); Potassium 3.3 mmol/L (3.5-5.1); Sodium 142.0 mmol/L (136-145)
[2024-11-16] MEDS: BUMETANIDE 2 MG in SYRINGE 0 ML IV SCH (08:17)
[2024-11-16] MEDS: POTASSIUM CHLORIDE 20 MEQ/15 ML UDC PO SCH (09:15)
[2024-11-16] MEDS: POTASSIUM CHLORIDE 20 MEQ/15 ML UDC PO STA (09:15)
--- NOTE | 2024-11-16 22:58 | Hospitalist Progress Note ---
Date of Service November 16, 2024 Assessment & Plan (1) Symptomatic anemia: (2) Elevated troponin I level: (3) Acute diastolic heart failure: (4) Iron deficiency anemia: (5) GI bleed: (6) CAD in [place] artery: (7) Hypertension: (8) Lung cancer: (9) COPD (chronic obstructive pulmonary disease): (10) Afib: (11) Chronic anticoagulation: Plan #Chronic blood loss / Symptomatic anemia #GIB #Iron deficiency anemia - pt will get 1 unit PRBC in the ED, additional unit given today - GI recs appreciated, plan for EGD on 11/13 - request records about previous EGD / C-scope - iron sat: 3%, iron 16, TIBC 494 - given pt has recent cardiac stents, pt on plavix, cardiology cleared for this to be held at this time - hemoglobin stable, advanced diet #AFib - cont amiodarone, diltiazem (confirm if pt is also on carvedilol) - pt has intermittent tachycardia and bradycardia - pt is on Xarelto, cont to hold #Hypokalemia - continue to replete on 11/16 #CHF - pt takes bumex 1mg po BID -increased to 2 mg of bumex -kidneys are tolerating this level - cont empagliflozin #HTN - pt on cont diltiazem (hold if HR < 55), hydralazine #Carotid artery stenosis - left carotid completely occluded - pt follows with Dr. Cárdenas #Constipation - iron induced - will order bowel regimen #HLD - cont atorvastatin #GERD - cont PPI #COPD - cont home nebulizers #ARON - trial CPAP while inpatient #Bradycardia - chronic, monitor at this time #DVT ppx: cont SCDs, holding xarelto for now #Code status: Full code, pt does state that if he does not return to baseline after his code and has severe neurological impairment, he does not want his life prolonged #Disposition: admit to PCU / Tele for closer monitoring Admission and Anticipated Discharge Date Admission Date: November 11, 2024 Subjective Patient reports no new symptoms. Patient reports not much improvement in his lower leg swelling. Physical Exam Physical Exam: Gen: no acute distress, obese male, lying in bed comfortable HEENT: NC/AT, MMM Lungs: nonlabored breathing, CTAB (though some wheezing noted during conversation, suspect more upper airway) CVS: s1s2nl, RRR Abd: nl bowel sounds, soft, NT / ND : no martinez Ext: 2+ edema b/l, up to knees Neuro: AAOx3 Psych: calm, cooperative Results & Data Results & Data Vital Signs (Past 12 Hours) Vital Signs Temp Pulse Pulse Resp BP Pulse Ox O2 Del Method 11/16/24 19:11 37.1 C 53 L 18 164/53 H 97 Room Air 11/16/24 15:34 36.9 C 51 L 16 147/55 H 94 Room Air 11/16/24 13:25 59 L 11/16/24 11:21 36.7 C 52 L 14 143/51 H 95 Room Air PG Care Time/CCT Total # of Minutes Spent Total Time Spent with Patient: Total time spent is greater than 50% in coordination of care (as documented) at patient's floor/unit and/or counseling patient: Coding Level of Care Code 74270 SUB INP/OBS CARE 3/50MIN Diagnoses Symptomatic anemia D64.9 Elevated troponin I level R79.89 Acute diastolic heart failure I50.31 Iron deficiency anemia D50.9 GI bleed K92.2 CAD in [place] artery I25.10 Hypertension I10 Lung cancer C34.90 COPD (chronic obstructive pulmonary disease) J44.9 Afib I48.91 Chronic anticoagulation Z79.01
--- NOTE | 2024-11-17 08:44 | Cardiology Progress Note ---
Date of Service November 17, 2024 Assessment & Plan (1) CAD (coronary artery disease): Plan: Status post cath x 3 stents in September 2024 with PCI to LAD 80% proximal to mid as well as a 70% mid circumflex (2) Paroxysmal atrial fibrillation: (3) Acute diastolic heart failure: (4) Symptomatic anemia: (5) Elevated troponin I level: (6) Rectal bleeding: (7) Carotid artery disease: (8) Pulmonary hypertension: Plan: His wedge pressure and LVEDP at the time of his catheterization was quite elevated 30-35. His pulmonary artery pressures were 65/28 which is severe Plan November 11, 2024 PMHX: 1. CAD s/p Cath x3 September 2024 with PCI to LAD with 80% prox to mid and distal lesions; 70% mid cx -- Residual diffise 40% cx and non obstructive RCA dz -- RA 20-25 -- PA 67/28 with mean 44 mm/hg -- Wedge 30-35 -- LVEDP 30-35 2. Tob ABuse 4PPD stopping in 2023 3. Hx Lung CA s/p RUL and RML ressection 4. NML LV fxn 5. Atrial Flutter on AC and Amio 6. Possible occlusion of his left ICA and 50 to 60% of his right 7. Obesity 8. ARON and Probable OHS intolerant of CPAP 9. 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 DM Type 2 11. HTN 12. HLD Mr. 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 He has resumed Plavix and Xeralto and his hgb has been stable. He continues to be significantly fluid overloaded and I would recommend more aggressive diuresis. His Bumex was increased to 2 mg IV bid over the weekend and he has made progress on his bnp this morning. He feels a little less sob. I will add 2.5 mg metolazone today and tomorrow. He'll have a bmp this afternoon. I also placed orders for 20 mEq potassium as it is low normal and he's likely to drop further with the metolazone. Strict Is&Os. Daily weights. I would push his diuretics until his BUN and creatinine start to bump. His pulmonary hypertension is likely multifactorial related to diastolic heart failure, sleep apnea and obesity hypoventilation syndrome. Entresto can be initiated when he's diuresed a bit more, he should have a script at discharge. His potassium should be replaced with a goal of 4.0 given his history of afib. He is maintaining sinus rhythm. He continues on amiodarone for rhythm control. Further diuresis will likely improve his blood pressure. His case was discussed with Dr. Santizo. Admission and Anticipated Discharge Date Admission Date: November 11, 2024 Subjective Mr. Rascon reports feeling better. He was a little lightheaded walking the halls. He is still experiencing orthopnea although he does note improvement in his dyspnea. His legs are edematous to the knees. He has left chest pain that is worse laying on his left and fleeting when he feels it. He's been in sinus rhythm on the monitor. Review of Systems Review of Systems: All systems reviewed & are unremarkable except as noted in HPI & below Physical Exam Constitutional: WD/WN, vitals as above Respiratory: normal respiratory effort, lungs clear to auscultation Cardiovascular: Rate/Rhythm: regular rate and regular rhythm Heart Sounds: normal S1 and normal S2 Extremities: + edema (bilateral ) Skin: no rashes, warm and dry Neurologic: moves all extremities and awake Psychiatric: A+Ox3, euthymic affect Results & Data Vital Signs (Past 12 Hours) Vital Signs Temp Pulse Pulse Resp BP BP Pulse Ox 11/17/24 08:34 36.8 C 60 16 165/58 H 95 11/17/24 03:35 36.6 C 51 L 18 136/43 L 94 11/16/24 23:14 36.8 C 56 L 16 129/45 L 95 11/16/24 23:00 54 L O2 Del Method 11/17/24 08:34 Room Air 11/17/24 03:35 Room Air 11/16/24 23:14 Room Air 11/16/24 23:00
[2024-11-17 09:08] LABS: Anion Gap 6.0 (3-11); Blood Urea Nitrogen 19.0 mg/dl (6-23); Calcium 8.6 mg/dl (8.6-10.3); Carbon Dioxide 31.0 mmol/L (21-32); Chloride 102.0 mmol/L (98-107); Creatinine Clr Calc Pharmacy 65.7 ml/min; Glucose 188.0 mg/dl (70-99(Fasting)); Potassium 3.6 mmol/L (3.5-5.1); Sodium 139.0 mmol/L (136-145)
--- NOTE | 2024-11-17 09:53 | Gastroenterology Progress Note ---
Date of Service November 17, 2024 Assessment & Plan (1) Dieulafoy lesion of duodenum: Plan: 74 year old male with history of of CAD s/p PCI x3 (09/2024) on Plavix, HTN, HLD, ARON, COPD, anemia (EGD/Colonoscopy in [place] in 2023 negative per patient, lung cancer, AFib on Xarelto and others below admitted through the ED w/ anemia, dark and tarry stools which outdate initiation of iron supplementation S/P EGD/Colonoscopy 11/13 w/ actively bleeding Dieulafoy lesion, clips placed. He has remained hemodynamically stable w/ HGB 7.9 w/o BUN elevation or further evidence of bleeding. Continue oral PPO Continue iron therapy. Continue supportive measures. Recall GI as needed. Thank you for allowing us to participate in the care of this patient. Please call with any acute changes, questions or concerns. Please see addendum below with additional recommendation from my supervising physician. I spent a total of 40 minutes on the date of service in review of patient's record, and previously obtained information in person and appropriate medical visit, discussion and education of plan, with patient and/or caregiver, placing orders for tests/referral/procedures as medically necessary and documentation of pertinent clinical information in patient's medical records for their visit today. Admission and Anticipated Discharge Date Admission Date: November 11, 2024 Supervising Physician Co-Signing Physician Notes I personally saw and examined the patient. I have reviewed the chart and agree with the documentation provided by the FOUNDER & CEO including discussion about the assessment, treatment and plan. Subjective Feeling well. Offers no GI concerns. No abd pain. No nausea/vomiting. Last BM was about 2/3 days ago. No report of black or bloody stools. No fever, chills, CP, SOB. Review of Systems Review of Systems: All other findings negative except as noted in HPI. Physical Exam Constitutional: WD/WN, vitals as above Gastrointestinal (Abdomen): normal bowel sounds, soft, nontender, no hepatosplenomegaly Skin: no rashes, warm and dry Results & Data Results & Data Vital Signs (Past 12 Hours) Vital Signs Temp Pulse Pulse Resp BP BP Pulse Ox 11/17/24 08:34 98.2 F 60 16 165/58 H 95 11/17/24 03:35 97.9 F 51 L 18 136/43 L 94 11/16/24 23:14 98.2 F 56 L 16 129/45 L 95 11/16/24 23:00 54 L O2 Del Method 11/17/24 08:34 Room Air 11/17/24 03:35 Room Air 11/16/24 23:14 Room Air 11/16/24 23:00 Laboratory Results 11/17/24 Range/Units 08:37 Sodium 139 (136-145) mmol/L Potassium 3.6 (3.5-5.1) mmol/L Chloride 102 (98-107) mmol/L Carbon Dioxide 31 (21-32) mmol/L Anion Gap 6 (3-11) BUN 19 (6-23) mg/dl Creatinine 1.37 (0.6-1.4) mg/dl Est Cr Clr Drug Dosing 65.7 ml/min eGFR 54.47 BUN/Creatinine Ratio 13.9 (10-20) Glucose 188 H (70-99(Fasting)) mg/dl Calcium 8.6 (8.6-10.3) mg/dl B-Natriuretic Peptide 285 H (0-100) pg/ml PG Care Time/CCT Total # of Minutes Spent Total Time Spent with Patient: Total time spent is greater than 50% in coordination of care (as documented) at patient's floor/unit and/or counseling patient: Coding Level of Care Code 21617 SUB INP/OBS CARE 235MIN Diagnoses Dieulafoy lesion of duodenum K31.82
[2024-11-17] MEDS: POTASSIUM CHLORIDE CRTAB 20 MEQ TABCR PO STA (10:46)
[2024-11-17 11:00] LABS: Hematocrit (blood only) 30.4 % (42.0-52.0); Hemoglobin 8.7 g/dl (14.0-18.0); Mean Corpuscular Hemoglobin 26.3 pg (25.0-34.0); Mean Corpuscular Volume 91.8 fL (80.0-100.0); Platelet Count 287 K/uL (130-400); RDW Standard Deviation 52.2 fL (36.4-46.3); Red Blood Count 3.31 M/uL (4.70-6.10); White Blood Count 6.49 K/ul (4.8-10.8)
[2024-11-17 15:56] LABS: Anion Gap 6.0 (3-11); Blood Urea Nitrogen 24.0 mg/dl (6-23); Calcium 8.9 mg/dl (8.6-10.3); Carbon Dioxide 32.0 mmol/L (21-32); Chloride 101.0 mmol/L (98-107); Creatinine Clr Calc Pharmacy 56.6 ml/min; Glucose 121.0 mg/dl (70-99(Fasting)); Potassium 3.7 mmol/L (3.5-5.1); Sodium 139.0 mmol/L (136-145)
--- NOTE | 2024-11-17 22:15 | Hospitalist Progress Note ---
Date of Service November 17, 2024 Assessment & Plan (1) Symptomatic anemia: (2) Elevated troponin I level: (3) Acute diastolic heart failure: (4) Iron deficiency anemia: (5) GI bleed: (6) CAD in [place] artery: (7) Hypertension: (8) Lung cancer: (9) COPD (chronic obstructive pulmonary disease): (10) Afib: (11) Chronic anticoagulation: Plan #Chronic blood loss / Symptomatic anemia #GIB #Iron deficiency anemia - pt will get 1 unit PRBC in the ED, additional unit given today - GI recs appreciated, plan for EGD on 11/13 - request records about previous EGD / C-scope - iron sat: 3%, iron 16, TIBC 494 - given pt has recent cardiac stents, pt on plavix, cardiology cleared for this to be held at this time - hemoglobin stable, advanced diet #AFib - cont amiodarone, diltiazem (confirm if pt is also on carvedilol) - pt has intermittent tachycardia and bradycardia - pt is on Xarelto, cont to hold #Hypokalemia - continue to replete on 11/16 #CHF - pt takes bumex 1mg po BID -increased to 2 mg of bumex -kidneys are tolerating this level - cont empagliflozin -continue to keep him here until creat hits a wall. #HTN - pt on cont diltiazem (hold if HR < 55), hydralazine #Carotid artery stenosis - left carotid completely occluded - pt follows with Dr. Cárdenas #Constipation - iron induced - will order bowel regimen #HLD - cont atorvastatin #GERD - cont PPI #COPD - cont home nebulizers #ARON - trial CPAP while inpatient #Bradycardia - chronic, monitor at this time #DVT ppx: cont SCDs, holding xarelto for now #Code status: Full code, pt does state that if he does not return to baseline after his code and has severe neurological impairment, he does not want his life prolonged #Disposition: admit to PCU / Tele for closer monitoring Admission and Anticipated Discharge Date Admission Date: November 11, 2024 Subjective 74 yo male reports no new symptoms. Physical Exam Physical Exam: Gen: no acute distress, obese male, lying in bed comfortable HEENT: NC/AT, MMM Lungs: nonlabored breathing, CTAB (though some wheezing noted during conversation, suspect more upper airway) CVS: s1s2nl, RRR Abd: nl bowel sounds, soft, NT / ND : no martinez Ext: 2+ edema b/l, up to knees Neuro: AAOx3 Psych: calm, cooperative Results & Data Results & Data Vital Signs (Past 12 Hours) Vital Signs Temp Pulse Pulse Resp BP Pulse Ox O2 Del Method 11/17/24 19:54 Room Air 11/17/24 19:45 36.9 C 54 L 20 160/61 H 97 Room Air 11/17/24 15:25 50 L 11/17/24 15:20 36.8 C 17 154/68 H 98 Room Air 11/17/24 11:00 36.7 C 55 L 17 181/63 H 97 Room Air PG Care Time/CCT Total # of Minutes Spent Total Time Spent with Patient: Total time spent is greater than 50% in coordination of care (as documented) at patient's floor/unit and/or counseling patient: Coding Level of Care Code 53311 SUB INP/OBS CARE 3/50MIN Diagnoses Symptomatic anemia D64.9 Elevated troponin I level R79.89 Acute diastolic heart failure I50.31 Iron deficiency anemia D50.9 GI bleed K92.2 CAD in [place] artery I25.10 Hypertension I10 Lung cancer C34.90 COPD (chronic obstructive pulmonary disease) J44.9 Afib I48.91 Chronic anticoagulation Z79.01
[2024-11-18 06:45] LABS: Anion Gap 8.0 (3-11); Blood Urea Nitrogen 24.0 mg/dl (6-23); Calcium 8.7 mg/dl (8.6-10.3); Carbon Dioxide 33.0 mmol/L (21-32); Chloride 99.0 mmol/L (98-107); Creatinine Clr Calc Pharmacy 58.1 ml/min; Glucose 122.0 mg/dl (70-99(Fasting)); Potassium 3.2 mmol/L (3.5-5.1); Sodium 140.0 mmol/L (136-145)
[2024-11-18 07:33] VITALS: RESP 21; TEMP 98.1; O2SAT 93
--- NOTE | 2024-11-18 09:46 | Cardiology Progress Note ---
Date of Service November 18, 2024 Assessment & Plan (1) CAD (coronary artery disease): Plan: Status post cath x 3 stents in September 2024 with PCI to LAD 80% proximal to mid as well as a 70% mid circumflex (2) Paroxysmal atrial fibrillation: (3) Acute diastolic heart failure: (4) Symptomatic anemia: (5) Elevated troponin I level: (6) Rectal bleeding: (7) Carotid artery disease: (8) Pulmonary hypertension: Plan: His wedge pressure and LVEDP at the time of his catheterization was quite elevated 30-35. His pulmonary artery pressures were 65/28 which is severe Plan November 11, 2024 PMHX: 1. CAD s/p Cath x3 September 2024 with PCI to LAD with 80% prox to mid and distal lesions; 70% mid cx -- Residual diffise 40% cx and non obstructive RCA dz -- RA 20-25 -- PA 67/28 with mean 44 mm/hg -- Wedge 30-35 -- LVEDP 30-35 2. Tob ABuse 4PPD stopping in 2023 3. Hx Lung CA s/p RUL and RML ressection 4. NML LV fxn 5. Atrial Flutter on AC and Amio 6. Possible occlusion of his left ICA and 50 to 60% of his right 7. Obesity 8. ARON and Probable OHS intolerant of CPAP 9. CKD with [employer] 1.5 10. DM Type 2 11. HTN 12. HLD Mr. 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 He has resumed Plavix and Xeralto and his hgb has been stable. He was given metolazone in addition to IV diuretic yesterday with good response and his BNP has come down further. His kidney function has bumped and I don't think there is room for further IV diuresis at this point. I would recommend his home Bumex dosing be resumed and that low dose Entresto be initiated. I did let him know that if the medication is very expensive he should download the one month free coupon from the company website and we could work on financial as sistance if necessary. His pulmonary hypertension is likely multifactorial related to diastolic heart failure, sleep apnea and obesity hypoventilation syndrome. Entresto can be initiated when he's diuresed a bit more, he should have a script at discharge. He will need a bmp in 10 days. He does not currently use a cpap and I would recommend a repeat sleep study after discharge. His volume status will be very hard to control without sleep apnea treatment. His potassium should be replaced with a goal of 4.0 given his history of afib. He is maintaining sinus rhythm. He continues on amiodarone for rhythm control. He can be discharged from a cardiology perspective. We will arrange for follow up with him Admission and Anticipated Discharge Date Admission Date: November 11, 2024 Subjective Mr. Rascon did feel that he had increased urine output after the metolazone yesterday. No dizziness. No chest pain. SR on the monitor. He would like to get home. Review of Systems Review of Systems: All systems reviewed & are unremarkable except as noted in HPI & below Physical Exam Constitutional: WD/WN, vitals as above Respiratory: normal respiratory effort, lungs clear to auscultation Cardiovascular: Rate/Rhythm: regular rate and regular rhythm Heart Sounds: normal S1 and normal S2 Extremities: + edema (bilateral LE edema) Skin: no rashes, warm and dry Neurologic: moves all extremities and awake Psychiatric: A+Ox3, euthymic affect Results & Data Vital Signs (Past 12 Hours) Vital Signs Temp Pulse Pulse Resp BP BP Pulse Ox 11/18/24 07:33 36.7 C 57 L 21 146/56 H 93 11/18/24 03:36 36.9 C 53 L 18 135/66 95 11/17/24 23:26 56 L 11/17/24 22:43 36.7 C 56 L 18 139/58 L 95 O2 Del Method 11/18/24 07:33 Room Air 11/18/24 03:36 Room Air 11/17/24 23:26 11/17/24 22:43 Room Air
[2024-11-18 11:06] VITALS: BP 135/66; PULSE 57
--- NOTE | 2024-11-18 11:26 | Discharge Summary ---
Discharge Summary Date of Service November 18, 2024 Principal Dx & Hospital Course #1 = Principal Diagnosis (1) Symptomatic anemia: (2) Elevated troponin I level: (3) Acute diastolic heart failure: (4) Iron deficiency anemia: (5) GI bleed: (6) CAD in [place] artery: (7) Hypertension: (8) Lung cancer: (9) COPD (chronic obstructive pulmonary disease): (10) Afib: (11) Chronic anticoagulation: Plan #Chronic blood loss / Symptomatic anemia #GIB #Iron deficiency anemia Acute blood loss anemia - pt will get 1 unit PRBC in the ED, additional unit given today - GI recs appreciated, plan for EGD on 11/13 - request records about previous EGD / C-scope - iron sat: 3%, iron 16, TIBC 494 - given pt has recent cardiac stents, pt on plavix, cardiology cleared for this to be held at this time - hemoglobin stable, advanced diet #AFib - cont amiodarone, diltiazem (confirm if pt is also on carvedilol) - pt has intermittent tachycardia and bradycardia - pt is on Xarelto, cont to hold #Hypokalemia - continue to replete on 11/16 #CHF - pt takes bumex 1mg po BID -increased to 2 mg of bumex -kidneys are tolerating this level - cont empagliflozin -continue to keep him here until creat hits a wall. #HTN - pt on cont diltiazem (hold if HR < 55), hydralazine #Carotid artery stenosis - left carotid completely occluded - pt follows with Dr. Cárdenas #Constipation - iron induced - will order bowel regimen #HLD - cont atorvastatin #GERD - cont PPI #COPD - cont home nebulizers #ARON Morbid obesity with BMI 49.1 - trial CPAP while inpatient #Bradycardia - chronic, monitor at this time #DVT ppx: cont SCDs, holding xarelto for now #Code status: Full code, pt does state that if he does not return to baseline after his code and has severe neurological impairment, he does not want his life prolonged #Disposition: admit to PCU / Tele for closer monitoring Admission HPI Per Admitting Provider 74 yo M with PMHx of CAD s/p PCI x3 (2 LAD and 1 Circ - 09/2024), HTN, HLD, ARON not on CPAP, COPD, GIB (with reportedly neg EGD / C-scope), lung cancer s/p wedge bx (2023), AFib on Xarelto. Pt was sent to the hospital for low Hgb count. Per pt and his daughter, his hemoglobin has been trending down over the past 9 months. He had EGD and colonoscopy done in the last 12 months and he was told it is negative. He has not had capsule endoscopy or any other testing done. His stool however has been positive for blood. His stool is chronic black and also sticky. He does take iron. He has also had exertional dyspnea. He is not able to climb stairs, get out of car, or do ADLs for prolonged period of time without feeling dyspneic. He has also noted increase in weight by 2 pounds. His lower extremity edema has been worsening as well. He denied chest pain, palpitations, dizziness. He notes constipation x24 hours. Though he has known GI loss, he continues on plavix (for stents) and xarelto (for AFib). Also discussed CPAP and effects of pulmonary hypertension. Pt expresses severe discomfort with having it on. In the ED, given his Hgb is 6.7, he is given 1 unit PRBC. CXR shows pulmonary edema and he is given lasix 40mg IV. Discharge Exam Gen: no acute distress, obese male, lying in bed comfortable HEENT: NC/AT, MMM Lungs: nonlabored breathing, CTAB (though some wheezing noted during conversation, suspect more upper airway) CVS: s1s2nl, RRR Abd: nl bowel sounds, soft, NT / ND : no martinez Ext: 2+ edema b/l, up to knees Neuro: AAOx3 Psych: calm, cooperative Discharge Plan Discharge Items Patient Disposition: Home - Self-Care Reason For Visit: BLOOD LOSS ANEMIA Discharge Diagnosis: Blood loss anemia Condition on Discharge: Fair Activity: Resume your previous activity Non-emergency contact: Primary Care Provider Call non-emergency contact if: you have any medication questions Follow-up/Referrals: Kyle Santizo DO [Primary Care Provider] - Diet: Heart Healthy Ambulatory Orders: Basic Metabolic Panel (Routine) Timeframe: [id number] Location: Determined by Patient Ordered By: Jose L Fajardo Complete Blood Count no Diff (Routine) Timeframe: 1 Week Location: Determined by Patient Ordered By: Jose L A Saborio Addtl Attending Provider Instructions: You have been hospitalized for an acute medical problem: GI bleed, thankfully this was treated. During your stay at [facility], we have made an effort to correct the problem that brought you to the hospital while keeping you as comfortable as possible. Medications such as pantoprazole were used to bring your condition under control and your discharge instructions will include directions for any medications you should take after leaving the hospital. Please make sure you see your Primary Care Provider as part of your follow up plan. Will recommend to continue this pantoprazole twice a day. Recommend folllowup with PCP in 1-2 weeks. Recommend followup with Cardiology within 1-2 weeks as well. Cardiology recommends starting entresto twice a day. will recheck your blood work in about 10 days. Pending Studies at Discharge: No Stand-Alone Forms: My [facility], Smoking Cessation Medications and DC Order Prescriptions: New sacubitril-valsartan [Entresto] 24-26 mg tablet 1 tab PO BID Qty: 60 0RF Continued multivitamin Tablet 1 tab PO DAILY atorvastatin 40 mg Tablet 40 mg PO HS carvedilol 25 mg Tablet 25 mg PO BID Rx Instructions: must administer with a meal/food albuterol sulfate 2.5 mg /3 mL (0.083 %) Solution For Nebulization 2.5 mg inhalation Q6H PRN (Reason: Wheezing) amiodarone 200 mg Tablet 200 mg PO DAILY diltiazem HCl 360 mg Capsule,Extended Release 24hr 360 mg PO DAILY clopidogrel 75 mg Tablet 75 mg PO DAILY hydralazine 100 mg Tablet 100 mg PO TID ferrous sulfate 325 mg (65 mg iron) Tablet 325 mg PO DAILY bumetanide 1 mg Tablet 1 mg PO BID Rx Instructions: Take an additional 1 mg when there is a weight gain of 1-2 pounds the next day. loratadine 10 mg Tablet 10 mg PO DAILY Xarelto 20 mg Tablet 20 mg PO DAILY Rx Instructions: must administer with evening meal Jardiance 10 mg Tablet 10 mg PO DAILY Breztri Aerosphere 160-9-4.8 mcg/actuation Hfa Aerosol Inhaler 1 inh INHALATION BID Mounjaro 2.5 mg/0.5 mL Pen Injector 2.5 mg SUBCUT WK Changed pantoprazole 40 mg Tablet,Delayed Release (Dr/Ec) 40 mg PO BID Qty: 60 0RF Discharge Orders: Discharge Order (Routine); Ordered 11/18/24 Ordered By: Jose L Fajardo Admission Data Admit Date/Time: 11/11/24 19:08 Attending Provider: Jose L Fajardo Admit Provider: Cinthia Lou Primary Care Provider: Kyle Santizo Other Providers: Cinthia Lou; Laurence Solitario; Onesimo Gutierrez I Other Interventions: Discharge Summary Assessment (RN) Last Done: 11/18/24 11:04 Hospital Stay Data Consultations 11/11/24 17:08 ED Decision to Admit Stat 11/11/24 18:30 Consult Cardiology Routine 11/11/24 18:56 Consult Gastroenterology Routine Procedures Performed Operation Date: 11/13/24 17:10 Actual Procedures p EGD Hemostasis - Onesimo Gutierrez MD s Colonoscopy - Onesimo Gutierrez MD Pending Results Patient Have Any Pending Studies at Discharge: No Discharge Instructions Given to Patient (Per Discharging Provider) You have been hospitalized for an acute medical problem: GI bleed, thankfully this was treated. During your stay at [facility], we have made an effort to correct the problem that brought you to the hospital while keeping you as comfortable as possible. Medications such as pantoprazole were used to bring your condition under control and your discharge instructions will include directions for any medications you should take after leaving the hospital. Please make sure you see your Primary Care Provider as part of your follow up plan. Will recommend to continue this pantoprazole twice a day. Recommend folllowup with PCP in 1-2 weeks. Recommend followup with Cardiology within 1-2 weeks as well. Cardiology recommends starting entresto twice a day. will recheck your blood work in about 10 days. Coding Diagnoses Symptomatic anemia D64.9 Elevated troponin I level R79.89 Acute diastolic heart failure I50.31 Iron deficiency anemia D50.9 GI bleed K92.2 CAD in [place] artery I25.10 Hypertension I10 Lung cancer C34.90 COPD (chronic obstructive pulmonary disease) J44.9 Afib I48.91 Chronic anticoagulation Z79.01
== END 2024-11-18 12:30 | disposition home or self-care (01) | DRG 377 ==
LOC: ED 16:06 → SUATTDRO 19:08 → 2S 19:08